=== PATIENT | female | born 1945 | race Caucasian/White ===

== ENCOUNTER → 2019-06-18 08:29 | Outpatient (CLI) | payer MEDICARE, OTHER ==
[~2019-06-18 08:29] MED LIST: BAYER CHEWABLE81 MG PO; BENICAR20 MG PO; CENTRUM SILVER1 EAC3 PO; CLARITIN 10 MG10 MG PO; COLACE100 MG PO; CYMBALTA30 MG PO; ELIQUIS2.5 MG PO; EXELON 13.3 M13.3 MG TRANSDERM; FLAGYL500 MG PO; HYDROCODON-ACE1 EA10 PO; LEVOFLOXACIN500 MG PO; LISINOPRIL10 MG PO; LISINOPRIL20 MG PO; MUCINEX600 MG PO; MYRBETRIQ25 MG PO; NAMENDA XR28 MG PO; NEXIUM40 MG PO; NORVASC2.5 MG PO; REMERON15 MG PO; TAPAZOLE 5 MG TA5 MG PO; TYLENOL ARTHRI650 MG PO; VITAMIN B-121000 MCG PO; [UNRECOGNIZED DRUG - OTHER] PO
[2019-08-01 11:12] VITALS: BMI 21.1
== END | disposition home or self-care (01) ==
LOC: D.US 08:29
PROVIDERS: ATTEND Family Medicine
DX: R10.10 Upper abdominal pain, unspecified (principal)

== ENCOUNTER 2019-06-19 18:24 | Inpatient (IN) | payer MEDICARE, OTHER ==
[~2019-06-19] VITALS: Ht 170.2 cm; Wt 64.0 kg
[2019-06-19] MEDS ORDERED: EXELON 13.3 M13.3 MG TRANSDERM (18:50)
[2019-06-19] MEDS ORDERED: NAMENDA XR28 MG PO (18:50)
[2019-06-19] MEDS ORDERED: TAPAZOLE 5 MG TA5 MG PO (18:51)
[2019-06-19] MEDS ORDERED: BENICAR20 MG PO (18:51)
[2019-06-19] MEDS ORDERED: NORVASC2.5 MG PO (18:51)
[2019-06-19] MEDS ORDERED: REMERON15 MG PO (18:52)
[2019-06-19] MEDS ORDERED: MYRBETRIQ25 MG PO (18:53)
[2019-06-19] MEDS ORDERED: CENTRUM SILVER1 EAC3 PO (18:53)
[2019-06-19] MEDS ORDERED: COLACE100 MG PO (18:53)
[2019-06-19] MEDS ORDERED: BAYER CHEWABLE81 MG PO (18:54)
[2019-06-19] MEDS ORDERED: VITAMIN B-121000 MCG PO (18:54)
[2019-06-19] MEDS ORDERED: [UNRECOGNIZED DRUG - OTHER] PO (18:55)
[2019-06-19 19:29] LABS: BASOPHILS 0.2 % (0-2); EOSINOPHILS 0.4 % (0-7); HEMATOCRIT 39.1 % (36.0-48.0); HEMOGLOBIN 13.1 g/dL (12-16); IMMATURE GRANULOCYTES 0.2 % (0-5); LYMPHOCYTES 12.1 % (15-50); MCH 31.5 pg (26.0-34.0); MCHC 33.5 g/dL (31.0-37.0); MEAN PLATELET VOLUME 8.9 fL (7.4-10.4); MONOCYTES 7.9 % (2-11); NEUTROPHILS 79.2 % (40-80); PLATELET COUNT 402 10x3/uL (130-400); RBC 4.16 10x6/uL (4.00-5.40); RDW 13.1 % (11.5-14.5); WBC 12.2 10x3/uL (4.8-10.8)
[2019-06-19 19:30] LABS: APPEARANCE CLEAR (CLEAR); BILIRUBIN NEGATIVE (NEGATIVE); COLOR YELLOW (YELLOW); GLUCOSE NEGATIVE (NEGATIVE); KETONE NEGATIVE (NEGATIVE); NITRITE NEGATIVE (NEGATIVE); PROTEIN NEGATIVE (NEGATIVE); SPECIFIC GRAVITY 1.005 (1.005-1.020); UROBILINOGEN NORMAL (NORMAL)
[2019-06-19 19:33] LABS: BACTERIA FEW /hpf (NEGATIVE); EPITHELIAL CELLS 0-5 /hpf (0-5); RED CELLS - URINE 0-5 /hpf (0-5); WHITE CELLS - URINE RARE /hpf (NEGATIVE)
--- NOTE | 2019-06-19 19:33 | NUR ---
URINE SENT TO LAB
[2019-06-19 19:53] LABS: ALBUMIN 3.1 g/dL (3.4-5.0); ALKALINE PHOSPHATASE 99 U/L (46-116); ALT (SGPT) 17 U/L (10-68); AMYLASE - SERUM 57 U/L (25-115); BILIRUBIN - TOTAL 0.29 mg/dL (0.2-1.3); CALC OSMOLALITY 294 mosm/kg (275-300); CALCIUM 9.1 mg/dL (8.5-10.1); CARBON DIOXIDE 33.2 mmol/L (21.0-32.0); CHLORIDE - SERUM 103 mmol/L (98-107); CREATININE - SERUM 1.5 mg/dL (0.6-1.3); GLUCOSE 141 mg/dL (74-106); LIPASE 181 U/L (73-393); POTASSIUM - SERUM 3.5 mmol/L (3.5-5.1); PROTEIN - SERUM 6.9 g/dL (6.4-8.2); SODIUM 145 mmol/L (136-145); TROPONIN-I < 0.017 ng/mL (0.000-0.060); UREA NITROGEN 23 mg/dL (7-18); eGFR NON AFRICAN AMERICAN 36 mL/min (90-120)
--- NOTE | 2019-06-19 22:39 | NUR ---
PT AMBULATED TO RESTROOM INDEPENDENTLY.
[2019-06-20 02:09] VITALS: BP 134/64; BMI 21.6
--- NOTE | 2019-06-20 02:23 | NUR ---
ADMISSIN ASSESSMENT COMPLETE. PT DENIES ANY NEEDS AT THIS TIME. BED IN LOWEST POSITION, SR X2, CALL LIGHT AND GLASSES WITHIN REACH. WILL CONTINUE TO MONITOR.
[2019-06-20 04:00] VITALS: BP 118/68
--- NOTE | 2019-06-20 07:00 | NUR ---
RECEIVED REPORT. ASSUMED CARE OF PATIENT. PATIENT ALERT/ORIENTED. RESP EVEN AND UNLABORED. NO DISTRESS. CALL LIGHT WITHIN REACH. NO DISTRESS.
--- NOTE | 2019-06-20 07:15 | NUR ---
ASSISTED PATIENT OOB TO RESTROOM AND BACK TO BED. NO DISTRESS. TRANSFERS WITH ONLY STAND BY ASSIST.
[2019-06-20 09:22] VITALS: BP 129/69
--- NOTE | 2019-06-20 10:43 | NUR ---
PHARMACY SAYS THE EXELON PATCHES ARE LOADED, THE PYXIS TELLS THIS CUSTOMER QUALITY SPECIALIST THEY ARE NOT. PHARMACY TO UNIT SOON TO FIND OUT WHAT THE PROBLEM IS.
--- NOTE | 2019-06-20 10:52 | NUR ---
CALLED PATIENTS AND HE WILL BRING PATIENTS EXELON PATCH WITH HIM FROM HOME BECAUSE WE DO NOT HAVE HER STRENGTH AVAILABLE AT THE HOSPITAL.
--- NOTE | 2019-06-20 13:11 | NUR ---
PATIENTS EXELON PATCHES BROUGHT FROM HOME ARE VERIFIED BY PHARMACY AND IN PATIENTS CASSETTE.
[2019-06-20 14:35] VITALS: BP 130/71
--- NOTE | 2019-06-20 15:59 | NUR ---
ASSISTED PATIENT OOB TO RESTROOM AND BACK TO BED. NO DISTRESS. IV FLUIDS INFUSING ORDERED. FEMALE VISITOR AT BEDSIDE LEFT. CALL LIGHT WITHIN REACH.
--- NOTE | 2019-06-20 17:58 | NUR ---
PATIENT HAS EATING PUDDING AND ICE CREAM OFF OF EVERY TRAY BUT REFUSES TO TRY THE SOUP, SAYS IT MIGHT HURT HER STOMACH. PATIENT IS REPEATING HERSELF MORE TOWARDS THE END OF THIS SHIFT THAN EARLIER. PATIENT DOES HAVE HX OF DEMENTIA AND DID RECEIVE A NEW EXELON PATCH TO HER LEFT SCAPULA AREA TODAY. NO DISTRESS. PATIENTS IS AT BEDSIDE AT THIS TIME. NO DISTRESS. CALL LIGHT WITHIN REACH.
[2019-06-20 18:19] VITALS: BP 139/74
--- NOTE | 2019-06-20 19:22 | NUR ---
RECIEVED BEDSIDE REPORT. A/A/O WITH VISITORS IN ROOM AND SPOUSE. AMBULATES TO B/R WITH STAND BY ASSIST. NON COMPLIANT WITH DIET. ATE A BANNANA. EXPLAINED TO PT AND THAT WE ARE TRYING TO REST HER INTESTINES WITH FULL LIQUID DIET. VOICED UNDERSTANDING. SPOUSE STATED HE WOULD TAKE THE REST OF THE FRUIT HOME. PT DOES HAVE PERIODS OF CONFUSION AND REPEATS SENTENCES SEVERAL TIMES. UNAWARE SHE HAS ALREADY SAID IT. DENIES ANY NEEDS AT THIS TIME.
[2019-06-20 20:00] VITALS: BP 123/66
[2019-06-21 00:30] VITALS: BP 114/50
[2019-06-21 04:00] VITALS: BP 168/76
[2019-06-21 04:58] LABS: BASOPHILS 0.3 % (0-2); LYMPHOCYTES 21.7 % (15-50); MCH 30.7 pg (26.0-34.0); MCHC 32.2 g/dL (31.0-37.0); MCV 95.4 fL (80.0-100.0); MEAN PLATELET VOLUME 8.9 fL (7.4-10.4); MONOCYTES 11.3 % (2-11); NEUTROPHILS 64.7 % (40-80); RDW 13.1 % (11.5-14.5)
[2019-06-21 05:01] LABS: HEMATOCRIT 31.1 % (36.0-48.0); PLATELET COUNT 312 10x3/uL (130-400); RBC 3.26 10x6/uL (4.00-5.40); WBC 6.1 10x3/uL (4.8-10.8)
[2019-06-21 05:31] LABS: ANION GAP 11.7 mmol/L (8-16); C-REACTIVE PROTEIN 4.8 mg/dL (0.0-0.9); CALCIUM 8.9 mg/dL (8.5-10.1); CARBON DIOXIDE 29.6 mmol/L (21.0-32.0); POTASSIUM - SERUM 3.3 mmol/L (3.5-5.1); T4 THYROXIN - FREE 0.96 ng/dL (0.76-1.46); THYROID STIMULATING HORMONE 0.29 uIU/mL (0.36-3.74)
[2019-06-21 05:33] LABS: ERYTHROCYTE SEDIMENTATION RATE 18 mm/hr (0-30)
--- NOTE | 2019-06-21 07:00 | NUR ---
RECEIVED REPORT. ASSUMED CARE OF PATIENT. NO DISTRESS. CALL LIGHT WITHIN REACH.
--- NOTE | 2019-06-21 07:29 | NUR ---
22 GAUGE IV PLACED TO LEFT FOREARM X 1 STICK. GOOD BLOOD RETURN, EASY FLUSH. TOLERATED IV PLACEMENT WELL. IV TAPED, DATED AND SECURED. NO DISTRESS. IV FLUIDS INFUSING ORDERED.
[2019-06-21 09:00] VITALS: BP 131/60
--- NOTE | 2019-06-21 09:08 | HP ---
PATIENT: VLADIMIR ROPER MEDICAL RECORD: [id number] ACCOUNT: [id number] LOCATION:[address] : [birth year] ADMISSION DATE: 06/20/19 PCP: EL RUEDA HISTORY AND PHYSICAL EXAMINATION ADMITTING PHYSICIAN: El Rueda MD REASON FOR ADMISSION: Abdominal pain. HISTORY OF PRESENT ILLNESS: The patient is a 73-year-old female with mild dementia. He has seen Dr. Rueda a few weeks ago. She had some abdominal pain, but denies fatty food intolerance. Gallbladder ultrasound was set up and performed yesterday showing numerous gallstones in the bladder without biliary dilatation. She presented to the ED because of this, but she described more left lower quadrant abdominal pain. A CT scan of the abdomen showed evidence of acute diverticulitis in the sigmoid colon. Her colonoscopy 4 years ago did not show any evidence of diverticulitis, just hemorrhoids. She admits to anorexia for the last couple of weeks, but no fever. No change in stools or fatty food intolerance. She denies constipation. She also denies hip pain. PAST MEDICAL HISTORY: Dementia. She was hospitalized in [address] [facility] for pneumonia and influenza, GERD, history of demand ischemia followed by Dr. England with history of CAD, but she does not recollect this. Essential hypertension, urinary stress incontinence, and hypothyroidism. PAST SURGICAL HISTORY: She had hysterectomy. FAMILY HISTORY: Mother at 95 of old age. Father at 88 from heart disease. One brother in good health. SOCIAL HISTORY: Lives at home with her who does help for most of her ADLs. She does not drive. She is a nonsmoker and nondrinker. She is a Scientologist. He has 2 children, but daughter from drug abuse and 1 grandchild. HOME MEDICATIONS: Namenda XR 28 mg daily, Exelon 13.5 mg transdermal patch daily, Tapazole mg p.o. daily, Benicar 25 mg a day, Norvasc 2.5 mg a day, Remeron 7.5 mg at h.s., Myrbetriq 25 mg daily, multivitamin 1 daily, Colace 100 mg p.o. daily, aspirin 81 mg daily, vitamin B12 1000 mcg p.o. daily. ALLERGIES: SULFA. REVIEW OF SYSTEMS: CONSTITUTIONAL: No fever, fatigue, but anorexia. HEENT: No recent new visual change, sinus congestion, or sore throat. RESPIRATORY: No severe cough. CARDIAC: No exertional chest pain, claudication or edema. GASTROINTESTINAL: Intermittent nausea with vague constant mid to lower abdominal pain for the last 2 weeks. Slight change in stool caliber of being small. Denies fatty food intolerance. GENITOURINARY: Has mild stress incontinence. No dysuria. GYNECOLOGICAL: No vaginal bleeding post-hysterectomy and 2. MUSCULOSKELETAL: Denies arthralgias, particularly no hip pain. PSYCHIATRIC: Denies depressed mood. HISTORY AND PHYSICAL [id number] VLADIMIR ROPER NEUROLOGICAL: Admits to poor memory. PHYSICAL EXAMINATION: VITAL SIGNS: Pulse is 134, temperature was 97.7, blood pressure 127/71, respirations of 18, and satting 97% on room air. GENERAL: The patient is a pleasant, alert and oriented, in no acute distress. Her eyes are clear, nonicteric. Oropharynx unremarkable. NECK: Supple. CHEST: Clear without wheeze or rales. HEART: Tachycardic without murmur. BREASTS: Symmetrical. ABDOMEN: Soft, tender in the left lower quadrant without rebound moderately tender above the bladder. It is nontender. No right upper quadrant. PELVIC: Deferred. EXTREMITIES: No CC and E. Good range of motion, knees and hips with minimal crepitance in the right knee. IMAGING: Gallbladder shows multiple gallstones without obstruction. 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 LABORATORY DATA: White count of 12,000, H and H of 13 and 39 respectively. Chemistry showed BUN and creatinine 23 and 1.5, and glucose 141 nonfasting. Lipase and amylase normal. Liver functions are normal. Urine shows 0-5 red cells, and epithelial cells, negative bacteria. ASSESSMENT: 1. Abdominal pain due to acute sigmoid diverticulitis. 2. Right femoral neck mass, etiology unknown, asymptomatic. 3. Hiatal hernia. 4. Asymptomatic gallstones. 5. Dementia. 6. Hypertension. PLAN: The patient will be admitted, placed on clear liquids, IV fluids and IV antibiotics and we will discuss with radiology further workup concerning her hip lesion as indicated. Surgical consult if needed. TRANSINT:[id number] Voice Confirmation ID: [id number] DOCUMENT ID: [id number] LANCE FAJARDO MD at 0908 CC: [id number] DICTATION DATE: 06/20/19806 ELEMENTARY SPANISH TEACHER: 06/20/19 09 ADM IN [place] [id number] [place] [id number]
--- NOTE | 2019-06-21 12:44 | NUR ---
MEDICATED WITH TYLENOL. PATIENT TEMP ELEVATED AT 99.5. POOR APPETITIE AT THIS TIME. NO ACUTE DISTRESS.
[2019-06-21 13:58] VITALS: BP 127/69
[2019-06-21 17:54] VITALS: BP 118/63
--- NOTE | 2019-06-21 19:14 | NUR ---
RECIEVED BEDSIDE SHIFT REPOT. LYING IN BED WITH EYES OPEN AND TV ON. ALERT AND ORIENTED X4. REQUIRES ASSIST WITH AMBULATION. IV TO LEFT FA SL. TELEMETRY IN PLACE. DENIES ANY NEEDS AT THIS TIME.
[2019-06-21 20:00] VITALS: BP 112/59
[2019-06-22] VITALS: BP 117/60
[2019-06-22 04:00] VITALS: BP 125/68
[2019-06-22 05:40] LABS: BASOPHILS 0.2 % (0-2); EOSINOPHILS 2.2 % (0-7); HEMATOCRIT 30.8 % (36.0-48.0); HEMOGLOBIN 9.7 g/dL (12-16); IMMATURE GRANULOCYTES 0.2 % (0-5); LYMPHOCYTES 26.7 % (15-50); MCH 30.1 pg (26.0-34.0); MCHC 31.5 g/dL (31.0-37.0); MCV 95.7 fL (80.0-100.0); MEAN PLATELET VOLUME 8.7 fL (7.4-10.4); MONOCYTES 9.7 % (2-11); PLATELET COUNT 317 10x3/uL (130-400); RBC 3.22 10x6/uL (4.00-5.40); RDW 13.1 % (11.5-14.5); WBC 6.3 10x3/uL (4.8-10.8)
[2019-06-22 05:59] LABS: ANION GAP 10.5 mmol/L (8-16); CALCIUM 8.8 mg/dL (8.5-10.1); CARBON DIOXIDE 27.3 mmol/L (21.0-32.0); POTASSIUM - SERUM 3.8 mmol/L (3.5-5.1)
--- NOTE | 2019-06-22 07:04 | NUR ---
PT AWAKE AND ORIENTED AT THIS TIME. STATES WILL BE BY LATER AFTER HE TAKES THEIR GRANDDAUGHTER TO [employer]. NO COMPLAINTS/CONCERNS, ALL QUESTIONS ANSWERED TOT HE BEST OF MY ABILITY. CL IN REACH, SRX2
[2019-06-22 09:27] VITALS: BP 142/67
[2019-06-22 13:39] VITALS: BP 124/79
--- NOTE | 2019-06-22 14:40 | NUR ---
I have reviewed this patient and I concur with the Shift Assessment completed by the Licensed Practical Nurse today this shift.
--- NOTE | 2019-06-22 17:13 | NUR ---
WE HAD PATIENT IN MRI SUITE FOR HER SCAN OF RT HIP WO. WE WERE ABOUT TO BRING PT BACK WHEN THE RADIOLOGIST HAD US CALL THE DR AND GET A REVISED ORDER TO INCLUDE CONTRAST. WE PAGED THEM AND DR DIMAS GAVE US A VERBAL ORDER TO GIVE THE PATIENT CONTRAST TO HELP EVALUATE THE LESION ON THE RT FEMORAL NECK. ORDERS WERE READ BACK AND VERIFIED BY GOMEZ MOTA.
--- NOTE | 2019-06-22 19:41 | NUR ---
RECIEVED BEDSIDE REPORT. UP IN BED WITH SPOUSE AT BEDSIDE. MEAL TRAY IN FRON OF HER. ONLY TOOK A FEW BITES OF DESERT. SAID "I DON'T LIKE TUNA". EXPLAINED THAT WE CAN GET HER SOMETHING ELSE AND TO LET US KNOW IF WE GIVE HER SOMETHING SHE DOES'NT LIKE". VERBALLY AGREED. IV TO LEFT FA WITH NS @ 50CC/HR. TELEMETRY IN PLACE. DENIES ANY NEEDS AT THIS TIME.
[2019-06-22 20:00] VITALS: BP 102/52
[2019-06-23] VITALS: BP 120/62
[2019-06-23 04:00] VITALS: BP 105/57
--- NOTE | 2019-06-23 07:00 | NUR ---
RECEIVED REPORT. ASSUMED CARE OF PATIENT. PATIENT LYING IN BED ON RIGHT LATERAL SIDE WITH EYES OPEN. PATIENT STATES SHE SLEPT WELL LAST NIGHT. DENIES NEEDS AT THIS TIME. NO DISTRESS.
--- NOTE | 2019-06-23 08:21 | NUR ---
ASSISTED PATIENT WITH MEAL SETUP. CALL LIGHT WITHIN REACH. NO DISTRESS.
[2019-06-23 09:45] VITALS: BP 142/64
[2019-06-23 12:37] VITALS: BP 108/57
[2019-06-23 13:14] VITALS: BMI 22.1
--- NOTE | 2019-06-23 13:21 | NUR ---
ASSISTED PATIENT TO THE RESTROOM AND BACK TO BED. CALL LIGHT WITHIN REACH. FAMILY AT BEDSIDE. NO DISTRESS.
--- NOTE | 2019-06-23 15:10 | MORECARE ---
CASE MANAGEMENT DISCHARGE SUMMARY PATIENT: VLADIMIR ROPER UNIT: [id number] ADM DATE: 06/20/19 AGE: 73 : 45 SEX: F ROOM/BED: D.2105 AUTHOR: AVILA MCKEON PHYSICIAN: REFERRING PHYSICIAN: LANCE FAJARDO MD DATE OF SERVICE: 06/23/19 Discharge Plan Patient Name: VLADIMIR ROPER [facility] [facility] 1945 Planned Disposition: Home Anticipated Discharge Date: Discharge Date: Expected LOS: Initial Reviewer: [email or web address] Initial Review Date: 06/23/2019 Generated: 06/23/19 4:10 pm Patient Name: VLADIMIR ROPER Page [phone] at 1510 All edits/amendments must be made on the electronic document DICTATION DATE: 06/23/19 150 PAINTER BOTTOM: FERN 06/23/19 1509 RPT#: [id number] DC DATE: STATUS: ADM IN [facility] [address] [place] [address] END OF REPORT
--- NOTE | 2019-06-23 15:19 | MORECARE ---
CASE MANAGEMENT DISCHARGE SUMMARY PATIENT: VLADIMIR ROPER UNIT: [id number] ADM DATE: 06/20/19 AGE: 73 : 45 SEX: F ROOM/BED: D.2107 AUTHOR: AVILA MCKEON PHYSICIAN: REFERRING PHYSICIAN: LANCE FAJARDO MD DATE OF SERVICE: 06/23/19 Discharge Plan Patient Name: VLADIMIR ROPER Facility: [facility]:[place] : 1945 Planned Disposition: Home Anticipated Discharge Date: Discharge Date: Expected LOS: Initial Reviewer: [email or web address] Initial Review Date: 06/23/2019 Generated: 06/23/19 4:18 pm Comments DCP- Discharge Planning Updated by [email or web address]: Tata Solomon on 06/23/19 2:[address] Patient Name: VLADIMIR ROPER Admission Status: ER Accout number: [id number] Admission Date: 06-20-2019 : 1945 Admission Diagnosis: Attending: LANCE FAJARDO Current LOS: 3 Anticipated DC Date: Planned Disposition: Home Primary Insurance: MEDICARE A & B Discharge Planning Comments: CM MET WITH PATIENT ABOUT DC PLANNING/NEEDS. PLANS TO DC TO HOME WITH . DENIES NEEDS FOR HH, REHAB OR EQUIPMENT. CM WILL FOLLOW AND ASSIST. Sr. Media Manager: Tata Solomon DCPIA - Discharge Planning Initial Assessment Updated by [id number]: Tata Solomon on 06/23/19 3:11 pm * Is the patient Alert and Oriented? Yes * PCP MOHIT * Pharmacy [facility] [address] * Preadmission Environment Home with Family * ADLs Independent * Equipment None * List name and contact numbers for known caregivers / representatives who currently or will assist patient after discharge: CYRUS, , * Community resources currently utilized None * Additional services required to return to the preadmission environment? No * Can the patient safely return to the preadmission environment? Yes * Has this patient been hospitalized within the prior 30 days at any hospital? No Last DP export: 06/23/19 2:10 Patient Name: VLADIMIR ROPER Page [phone] at 1519 All edits/amendments must be made on the electronic document DICTATION DATE: 06/23/191517 SMELTER OPERATOR: FERN 06/23/191517 RPT#: [id number] MO DATE: STATUS: ADM IN [facility] [address] [place] [address] END OF REPORT
--- NOTE | 2019-06-23 15:30 | NUR ---
IV TUBING CHANGED. TOLERATING IV ABX WELL, NO DISTRESS.
--- NOTE | 2019-06-23 16:00 | NUR ---
SHOWER COMPLETE. NO DISTRESS. CALL LIGHT WITHIN REACH.
[2019-06-23 18:06] VITALS: BP 119/70
--- NOTE | 2019-06-23 19:10 | NUR ---
EVENING ROUNDS COMPLETE. PT SITTING UP IN BED, FAIMLY AT BEDSIDE. NO SIGNS OF DISTRESS. PT DENIES ANY PAIN OR NEEDS AT THIS TIME. CL IN REACH, BED IN LOWEST POSITION.
--- NOTE | 2019-06-23 19:30 | NUR ---
LEFT AC PIV REMOVED. TIP INTACT. PT TOLERATED WELL.
[2019-06-23 20:00] VITALS: BP 119/59
[2019-06-24] VITALS: BP 113/53
[2019-06-24 04:00] VITALS: BP 118/60
[2019-06-24 05:04] LABS: BASOPHILS 0.1 % (0-2); EOSINOPHILS 2.3 % (0-7); HEMOGLOBIN 10.3 g/dL (12-16); IMMATURE GRANULOCYTES 0.3 % (0-5); LYMPHOCYTES 19.9 % (15-50); MCH 30.6 pg (26.0-34.0); MCHC 32.2 g/dL (31.0-37.0); MEAN PLATELET VOLUME 8.7 fL (7.4-10.4); MONOCYTES 9.7 % (2-11); NEUTROPHILS 67.7 % (40-80); PLATELET COUNT 333 10x3/uL (130-400); RBC 3.37 10x6/uL (4.00-5.40); RDW 13.1 % (11.5-14.5); WBC 7.9 10x3/uL (4.8-10.8)
[2019-06-24 05:16] LABS: ANION GAP 9.8 mmol/L (8-16); CALCIUM 8.5 mg/dL (8.5-10.1); CARBON DIOXIDE 28.4 mmol/L (21.0-32.0); CREATININE - SERUM 0.9 mg/dL (0.6-1.3); POTASSIUM - SERUM 4.2 mmol/L (3.5-5.1)
[2019-06-24 06:05] LABS: APTT 31.6 SECONDS (22.8-39.4); INR 1.05 (0.85-1.17); PROTIME 13.2 SECONDS (11.6-15.0)
--- NOTE | 2019-06-24 06:54 | NUR ---
REPORT RECEIVED. SHE IS ALERT TO NAME. CL IN REACH DENIES ANY CURRENT NEEDS, BED IS LOCKED AND IN LOWEST POSITION. LEFT F/A SALINE LOCK INTACT. NO C/O ABDOMINAL PAIN OR LOOSE STOOLS. CAREPLAN REVIEW DONE WITH SAFETY PRECAUTIONS IN PLACE
[2019-06-24 09:25] VITALS: BP 118/58
[2019-06-24 14:02] VITALS: BP 104/51
[2019-06-24 17:43] VITALS: BP 113/58
[2019-06-24 20:00] VITALS: BP 110/53
--- NOTE | 2019-06-24 20:04 | NUR ---
AWAKE,ALERT.NO COMPLAITNS VOICED. RESP EVEN AND UNALBORED. IV TO LEFT ARM INTACT WITHOUT REDNESS OR EDEMA NOTED. CL IN REACH. FALL PRECAUTIONS IN PLACE.
[2019-06-25] VITALS: BP 107/54; BP 122/61
[2019-06-25 04:00] VITALS: BP 107/71
[2019-06-25 05:10] LABS: BASOPHILS 0.1 % (0-2); EOSINOPHILS 1.8 % (0-7); HEMATOCRIT 32.3 % (36.0-48.0); HEMOGLOBIN 10.6 g/dL (12-16); IMMATURE GRANULOCYTES 0.2 % (0-5); LYMPHOCYTES 18.6 % (15-50); MCH 30.7 pg (26.0-34.0); MCHC 32.8 g/dL (31.0-37.0); MCV 93.6 fL (80.0-100.0); MEAN PLATELET VOLUME 8.7 fL (7.4-10.4); MONOCYTES 9.5 % (2-11); NEUTROPHILS 69.8 % (40-80); PLATELET COUNT 346 10x3/uL (130-400); RBC 3.45 10x6/uL (4.00-5.40); RDW 13.2 % (11.5-14.5)
[2019-06-25 05:36] LABS: CALCIUM 8.6 mg/dL (8.5-10.1); CARBON DIOXIDE 26.6 mmol/L (21.0-32.0); CREATININE - SERUM 0.9 mg/dL (0.6-1.3); POTASSIUM - SERUM 3.6 mmol/L (3.5-5.1)
--- NOTE | 2019-06-25 07:00 | NUR ---
REPORT RECEIVED. SHE IS ALERT AND ABLE TO VOICE NEEDS. CL IN REACH RESP EVEN WITHOUT LABOR NO C/O ABDOMINAL OR LOOSE STOOLS STATED SHE RESTED GOOD LAST NIGHT. BED IN LOWEST POSITION AND LOCKED. CAREPLAN REVIEW DONE WITH SAFETY PRECAUTIONS IN PLACE
[2019-06-25 08:30] VITALS: BP 127/67
[2019-06-25 12:30] VITALS: BP 98/65
[2019-06-25 13:10] LABS: SPE - ALBUMIN 2.4 g/dL (2.9-4.4); SPE - ALPHA-1 GLOBULIN 0.3 g/dL (0.0-0.4); SPE - ALPHA-2 GLOBULIN 0.8 g/dL (0.4-1.0); SPE - BETA GLOBULIN 0.7 g/dL (0.7-1.3); SPE - GAMMA GLOBULIN 0.7 g/dL (0.4-1.8); SPE - M-SPIKE Not Observed g/dL (Not Observed); SPE - TOTAL PROTEIN 4.9 g/dL (6.0-8.5)
--- NOTE | 2019-06-25 13:11 | NUR ---
Nutrition Follow-up: Up in chair eating lunch at time of visit. Reports abd pain improving but eating "because I have to". Likes Ensure. Diet: Regular, Soft PO intake: 25-100% Wt: 141# Last BM: 06/25 Labs reviewed Meds noted: vitamin B12, Remeron -Continue current diet as tolerated. -+Ensure with meals. -RD following.
[2019-06-25] MEDS ORDERED: LEVOFLOXACIN500 MG PO (13:53)
[2019-06-25] MEDS ORDERED: FLAGYL500 MG PO (13:53)
[2019-06-25 14:09] LABS: CA125 8.2 U/mL (0.0-38.1); CEA 1.6 ng/mL (0.0-4.7)
--- NOTE | 2019-06-25 16:10 | MORECARE ---
CASE MANAGEMENT DISCHARGE SUMMARY PATIENT: VLADIMIR ROPER UNIT: [id number] ADM DATE: 06/20/19 AGE: 73 : 45 SEX: F ROOM/BED: D.2105 AUTHOR: AVILA MCKEON PHYSICIAN: REFERRING PHYSICIAN: LANCE FAJARDO MD DATE OF SERVICE: 06/25/19 Discharge Plan Patient Name: VLADIMIR ROPER Facility[facility]:[place] : 1945 Planned Disposition: Home Anticipated Discharge Date: 06/25/19 Discharge Date: Expected LOS: 5 Initial Reviewer: [email or web address] Initial Review Date: 06/23/2019 Generated: 06/25/19 5:10 pm Comments DCP- Discharge Planning Updated by [email or web address]: Tata Solomon on 06/23/19 2:[address] Patient Name: VLADIMIR ROPER Admission Status: ER Accout number: [id number] Admission Date: 06-20-2019 : 1945 Admission Diagnosis: Attending: LANCE FAJARDO Current LOS: 3 Anticipated DC Date: Planned Disposition: Home Primary Insurance: MEDICARE A & B Discharge Planning Comments: CM MET WITH PATIENT ABOUT DC PLANNING/NEEDS. PLANS TO DC TO HOME WITH . DENIES NEEDS FOR HH, REHAB OR EQUIPMENT. CM WILL FOLLOW AND ASSIST. Sheet Combining Operator: Tata Solomon DCPIA - Discharge Planning Initial Assessment Updated by [id number]: Tata Solomon on 06/23/19 3:11 pm * Is the patient Alert and Oriented? Yes * PCP MOHIT * Pharmacy [facility] * Preadmission Environment Home with Family * ADLs Independent * Equipment None * List name and contact numbers for known caregivers / representatives who currently or will assist patient after discharge: CYRUS, , * Community resources currently utilized None * Additional services required to return to the preadmission environment? No * Can the patient safely return to the preadmission environment? Yes * Has this patient been hospitalized within the prior 30 days at any hospital? No Coverage Notice Reviewer: [email or web address] Smiley You Notice Issued Date-Time: 06/25/2019 14:25 Notice Type: IM Discharge Notice Notice Delivered To: Patient Relationship to Patient: Supervisor Communications And Signals Name: Delivery Method: HAND - Hand Delivered Roselyn Days: Prior Verbal Notification: Recipient Understood Notice: Yes Recipient Signature: Yes Med Rec Note Co-signed by Attending: Coverage Notice Comment: Last DP export: 06/23/19 2:19 Patient Name: VLADIMIR ROPER Page [id number] at 1610 All edits/amendments must be made on the electronic document DICTATION DATE: 06/25/191609 PIPE ORGAN MECHANIC: FERN 06/25/191609 RPT#: [id number] DC DATE: STATUS: ADM IN [facility] [address] [place] [address] END OF REPORT
--- NOTE | 2019-06-25 16:18 | MORECARE ---
CASE MANAGEMENT DISCHARGE SUMMARY PATIENT: VLADIMIR ROPER UNIT: [id number] ADM DATE: 06/20/19 AGE: 73 : 45 SEX: F ROOM/BED: D.210 AUTHOR: AVILA MCKEON PHYSICIAN: REFERRING PHYSICIAN: LANCE FAJARDO MD DATE OF SERVICE: 06/25/19 Discharge Plan Patient Name: VLADIMIR ROPER Facility: [facility]:[place] : 1945 Planned Disposition: Home Anticipated Discharge Date: 06/25/19 Discharge Date: Expected LOS: 5 Initial Reviewer: [email or web address] Initial Review Date: 06/23/2019 Generated: 06/25/19 5:18 pm Comments DCP- Discharge Planning Updated by [id number]: Issa You on 06/25/19 3:[address] Patient Name: VLADIMIR ROPER Encounter No: [id number] : 1945 Primary Insurance: MEDICARE A & B Anticipated DC Date: 06-25-2019 Planned Disposition: Home DCP follow-up note: CM MET WITH PT IN ROOM TO DISCUSS DISCHARGE NEEDS AND PLANNING. CM DISCUSSED AVAILABILITY OF HOME HEALTH, REHAB SERVICES AND MEDICAL EQUIPMENT. PT DENIES DISCHARGE NEEDS. SPOUSE TO TRANSPORT HOME AT DISCHARGE. IMPORTANT MESSAGE FROM MEDICARE PROVIDED AND EXPLAINED. MARVIN Stapleton DCP- Discharge Planning Updated by [email or web address]: Tata Solomon on 06/23/19 2:[address] Patient Name: VLADIMIR ROPER Admission Status: ER Accout number: [id number] Admission Date: 06-20-2019 : 1945 Admission Diagnosis: Attending: LANCE FAJARDO Current LOS: 3 Anticipated DC Date: Planned Disposition: Home Primary Insurance: MEDICARE A & B Discharge Planning Comments: CM MET WITH PATIENT ABOUT DC PLANNING/NEEDS. PLANS TO DC TO HOME WITH . DENIES NEEDS FOR HH, REHAB OR EQUIPMENT. CM WILL FOLLOW AND ASSIST. Manufacturing Executive: Tata Solomon DCPIA - Discharge Planning Initial Assessment Updated by [id number]: Tata Solomon on 06/23/19 3:11 pm * Is the patient Alert and Oriented? Yes * PCP MOHIT * Pharmacy [facility] [address] * Preadmission Environment Home with Family * ADLs Independent * Equipment None * List name and contact numbers for known caregivers / representatives who currently or will assist patient after discharge: ROSEMARY BRIDGES, * Community resources currently utilized None * Additional services required to return to the preadmission environment? No * Can the patient safely return to the preadmission environment? Yes * Has this patient been hospitalized within the prior 30 days at any hospital? No Coverage Notice Reviewer: [email or web address] Smiley You Notice Issued Date-Time: 06/25/2019 14:25 Notice Type: IM Discharge Notice Notice Delivered To: Patient Relationship to Patient: Internal Wholesaler Name: Delivery Method: HAND - Hand Delivered Roselyn Days: Prior Verbal Notification: Recipient Understood Notice: Yes Recipient Signature: Yes Med Rec Note Co-signed by Attending: Coverage Notice Comment: Last DP export: 06/25/19 3:10 Patient Name: VLADIMIR ROPER Page [id number] at 1618 All edits/amendments must be made on the electronic document DICTATION DATE: 06/25/191617 GRAPHICS PROGRAMMER: FERN 06/25/191617 RPT#: [id number] DC DATE: STATUS: ADM IN [facility] [address] [place] [address] END OF REPORT
[2019-06-25 16:37] VITALS: BP 112/64
--- NOTE | 2019-06-25 16:41 | NUR ---
UPON ADMIT, PATIENT REPORTS TO HAVING A FLU SHOT. GOING HOME ON [facility].
[2019-06-25 17:08] LABS: CA 27-29 14.9 U/mL (0.0-38.6)
--- NOTE | 2019-06-25 18:15 | NUR ---
DISCHARGE PAPERS EXPLAINED TO HER AND IN DETAIL INCLUDING FOLLOW UP APPOINTMENTS AND NEW MEDICATIONS WHICH HE HAS ALREADY PICKED UP FROM THE PHARMACY. SALINE LOCK D/C WITH CATH TIP INTACT NO BLEEDING NOTED. TELEMETRY RETURNED TO HEAD CHARRER. SHE WAS TRANSFERRED BY W/C TO PRIVATE AUTO IN STABLE CONDITION
[2019-07-04 11:18] VITALS: Ht 170.2 cm; Wt 64.0 kg
== END 2019-06-25 18:15 | disposition home or self-care (01) | DRG 392 ==
LOC: D.ER 18:24 → D.M2 06-20 00:07
PROVIDERS: Family Medicine; Internal Medicine Hematology & Oncology; ADMIT Family Medicine; ATTEND Family Medicine
DX: K57.12 Diverticulitis of small intestine without perforation or abscess without bleeding (principal); N39.0 Urinary tract infection, site not specified; M89.9 Disorder of bone, unspecified; K44.9 Diaphragmatic hernia without obstruction or gangrene; K80.80 Other cholelithiasis without obstruction; F03.90 Unspecified dementia, unspecified severity, without behavioral disturbance, psychotic disturbance, mood disturbance, and anxiety; I10 Essential (primary) hypertension; K21.9 Gastro-esophageal reflux disease without esophagitis; I25.10 Atherosclerotic heart disease of native coronary artery without angina pectoris; E03.9 Hypothyroidism, unspecified; D64.9 Anemia, unspecified

== ENCOUNTER 2019-06-29 05:30 | Outpatient (CLI) | payer MEDICARE, OTHER ==
[~2019-06-29] VITALS: Ht 172.7 cm; Wt 65.0 kg
[~2019-06-29 05:30] MED LIST changes: -CLARITIN 10 MG10 MG PO; -CYMBALTA30 MG PO; -ELIQUIS2.5 MG PO; -HYDROCODON-ACE1 EA10 PO; -LISINOPRIL10 MG PO; -LISINOPRIL20 MG PO; -MUCINEX600 MG PO; -NEXIUM40 MG PO; -TYLENOL ARTHRI650 MG PO
[2019-06-29 06:12] LABS: PROTIME 12.7 SECONDS (11.6-15.0)
[2019-06-29 06:13] LABS: APTT 30.4 SECONDS (22.8-39.4)
[2019-06-29 06:20] LABS: BASOPHILS 0.1 % (0-2); EOSINOPHILS 0.4 % (0-7); HEMATOCRIT 34.4 % (36.0-48.0); HEMOGLOBIN 11.6 g/dL (12-16); IMMATURE GRANULOCYTES 0.3 % (0-5); LYMPHOCYTES 12.8 % (15-50); MCH 31.6 pg (26.0-34.0); MCHC 33.7 g/dL (31.0-37.0); MCV 93.7 fL (80.0-100.0); MONOCYTES 7.4 % (2-11); PLATELET COUNT 410 10x3/uL (130-400); RBC 3.67 10x6/uL (4.00-5.40); RDW 13.9 % (11.5-14.5); WBC 13.8 10x3/uL (4.8-10.8)
[2019-06-29 06:37] LABS: ANION GAP 12.2 mmol/L (8-16); CALCIUM 8.8 mg/dL (8.5-10.1); CARBON DIOXIDE 29.3 mmol/L (21.0-32.0); POTASSIUM - SERUM 3.5 mmol/L (3.5-5.1)
[2019-06-29] MEDS ORDERED: TYLENOL ARTHRI650 MG PO (06:42)
[2019-06-29] MEDS ORDERED: NEXIUM40 MG PO (06:42)
[2019-06-29] MEDS ORDERED: MUCINEX600 MG PO (06:42)
[2019-06-29] MEDS ORDERED: CYMBALTA30 MG PO (06:42)
[2019-06-29] MEDS ORDERED: LISINOPRIL20 MG PO (06:43)
[2019-06-29] MEDS ORDERED: NAMENDA XR28 MG PO (06:44)
[2019-06-29 06:49] VITALS: Ht 172.7 cm; Wt 65.0 kg
--- NOTE | 2019-06-29 12:43 | NUR ---
0948 VITAL SIGNS ARE RECORDED ON POST PROCEDURE FORM AND IS IN PAPER CHART FOR DOCUMENTATION.
--- NOTE | 2019-06-29 12:44 | NUR ---
1130 PT UP WITH ASSISTANCE TO BATHROOM. VOIDED WITHOUT DIFFICULTY. ASSISTED PT BACK TO BED. IV DC'D. CATHETER TIP INTACT. PRESSURE HELD UNTIL BLEEDING CEASED. BANDAID APPLIED. 1151 PT DISCHARGED HOME VIA WHEELCHAIR ACCOMPANIED BY HER . NO BLEEDING NOTED ON DRESSING OR HEMATOMA AT SITE. HAS DISCHARGE PACKET WITH INSTRUCTIONS.
== END 2019-06-29 11:51 ==
LOC: D.SP 05:30 → D.RAD 08:00 → D.SP 08:00
PROVIDERS: General Practice; ATTEND Orthopaedic Surgery
DX: R22.41 Localized swelling, mass and lump, right lower limb (principal)

== ENCOUNTER 2019-07-13 07:43 | Inpatient (IN) | payer MEDICARE, OTHER ==
[~2019-07-13] VITALS: Ht 152.4 cm; Wt 75.6 kg
[~2019-07-13 07:43] MED LIST changes: +CYMBALTA30 MG PO; +LISINOPRIL20 MG PO; +MUCINEX600 MG PO; +NEXIUM40 MG PO; +TYLENOL ARTHRI650 MG PO
[2019-07-23] MEDS ORDERED: BAYER CHEWABLE81 MG PO (08:34)
[2019-07-23 09:28] LABS: HEMATOCRIT 38.3 % (36.0-48.0); HEMOGLOBIN 12.7 g/dL (12-16); MCH 31.4 pg (26.0-34.0); MCHC 33.2 g/dL (31.0-37.0); MCV 94.6 fL (80.0-100.0); MEAN PLATELET VOLUME 9.1 fL (7.4-10.4); RBC 4.05 10x6/uL (4.00-5.40); WBC 7.2 10x3/uL (4.8-10.8)
[2019-07-27] VITALS (19 sets, daily range): BP systolic 57–116; BP diastolic 33–61; BMI 22.9
--- NOTE | 2019-07-27 12:20 | NUR ---
DR OLEKSANDR BATRES, UPDATE GIVEN. REQUESTED WE CONSULT PRIMARY CARE FOR PT, DR COTTER'S OFFICE PUT PAGE OUT TO DR DUTTON, AWAITING CALL.
--- NOTE | 2019-07-27 19:25 | NUR ---
PT LYING IN BED RESTING, AOX4. IV RIGHT FA INFUSING 1/2NS @ 125. RIGHT HIP INCISION AND DRESSING CDI. PT DENIES PAIN AT THIS TIME. CL IN REACH, WILL CTM
--- NOTE | 2019-07-27 20:00 | NUR ---
NURSES AID ALERTED THIS NURSE TO 78/41 BP. THIS NURSE TOOK MANUAL BP AND GOT SAME READING. CALLED DR LEGGETT. ORDERS TO GET STAT H&H AND GIVE 500ML BOLUS. BOLUS STARTED. PLACED PT IN [place]. CALLED LAB TO DRAW H&H. STATES THEY WILL BE HERE SOON. PT DENIES LIGHTHEADEDNESS, DIZZINESS, SKIN WNL, HR 76. NO COMPLAINTS. WILL CTM
--- NOTE | 2019-07-27 21:00 | NUR ---
BP 57/36, SECOND 500ML BOLUS STARTED. AWAITING H&H RESULTS
[2019-07-27 21:12] LABS: BASOPHILS 0 % (0-2); EOSINOPHILS 0 % (0-7); HEMATOCRIT 26.8 % (36.0-48.0); HEMOGLOBIN 8.7 g/dL (12-16); IMMATURE GRANULOCYTES 0.3 % (0-5); LYMPHOCYTES 7.3 % (15-50); MCH 30.6 pg (26.0-34.0); MCHC 32.5 g/dL (31.0-37.0); MCV 94.4 fL (80.0-100.0); MEAN PLATELET VOLUME 8.9 fL (7.4-10.4); MONOCYTES 6.2 % (2-11); NEUTROPHILS 86.2 % (40-80); RBC 2.84 10x6/uL (4.00-5.40); RDW 14.2 % (11.5-14.5); WBC 10.1 10x3/uL (4.8-10.8)
[2019-07-27 21:17] LABS: PLATELET COUNT 216 10x3/uL (130-400)
--- NOTE | 2019-07-27 21:45 | NUR ---
DR LEGGETT CALLED WITH H&H RESULTS. ORDERS TO REDRAW IN 4 HOURS. TRANSFUSE IF LESS THAN 8. ORDERS TO CONSULT MEDICINE. CALLED ARACELI MENDOZA APN WITH CONSULT. ORDERS RECIEVED FOR 3RD 500ML BOLUS AND TO TRANSFER TO ICU. CALLED [facility] DIRECTOR, PT TO GO TO ROOM 2306. CALLED REPORT. CALLED PT AND UPDATED ON STATUS. TRANSFERED PT AND BELONGINGS TO ROOM 2306 @ 2216
--- NOTE | 2019-07-27 22:15 | NUR ---
RECEIVED IN BED BY RN AND PCT. ALERT AND ORIENTED. B/P 82/61, HR 83. L HIP DRESSING CDI, SITE SOFT, NO SIGNS OF BLEEDING OR HEMATOMA. PT DENIES ANY PAIN. OTHER VSS. CALL LIGHT IN REACH, BED IN LOW POSITION.
--- NOTE | 2019-07-27 23:00 | NUR ---
B/P 77/48 MAP 55, LEVOPHED STARTED PER NOV. OTHER VSS. R HIP SITE SOFT, NO SIGNS OF BLEEDING NOTED. PT DENIES ANY NEEDS, CALL LIGHT IN REACH.
[2019-07-27 23:45] LABS: HEMATOCRIT 28.7 % (36.0-48.0); HEMOGLOBIN 9.7 g/dL (12-16)
[2019-07-27 23:52] LABS: INR 1.05 (0.85-1.17); PROTIME 13.2 SECONDS (11.6-15.0)
[2019-07-27 23:53] LABS: APTT 25.9 SECONDS (22.8-39.4)
[2019-07-28] VITALS (93 sets, daily range): BP systolic 81–128; BP diastolic 4–79; Ht 152.4 cm; Wt 75.6 kg
--- NOTE | 2019-07-28 00:18 | NUR ---
SPOKE WITH DR LEGGETT, UPDATE GIVEN. HE RECOMMENDED THAT WE CONSULT PRIMARY FOR PT. DR RUEDA'S OFFICE ANSWERING SERVICE CALLED AND DR DUTTON IS CLEARING INSPECTOR AND PAGED, WAITING CALL BACK.
--- NOTE | 2019-07-28 00:25 | NUR ---
DR MARIJA BATRES
--- NOTE | 2019-07-28 00:55 | NUR ---
DR DUTTON PAGED AGAIN
--- NOTE | 2019-07-28 01:25 | NUR ---
SPOKE WITH DR DUTTON, UPDATE GIVEN AND NEW ORDERS RECEIVED.
--- NOTE | 2019-07-28 03:00 | NUR ---
REASSESSMENT COMPLETE, SEE FLOWSHEET. VSS, NO SIGNS OF ACUTE DISTRESS NOTED. PT SLEEPING, CALL LIGHT IN REACH. WILL MONITOR.
[2019-07-28 04:27] LABS: BASOPHILS 0.1 % (0-2); EOSINOPHILS 0.1 % (0-7); HEMATOCRIT 30.6 % (36.0-48.0); HEMOGLOBIN 9.8 g/dL (12-16); IMMATURE GRANULOCYTES 0.1 % (0-5); LYMPHOCYTES 12.7 % (15-50); MCH 30.3 pg (26.0-34.0); MCV 94.7 fL (80.0-100.0); MEAN PLATELET VOLUME 9.2 fL (7.4-10.4); MONOCYTES 8.2 % (2-11); NEUTROPHILS 78.8 % (40-80); RBC 3.23 10x6/uL (4.00-5.40); RDW 14.4 % (11.5-14.5); WBC 11.5 10x3/uL (4.8-10.8)
[2019-07-28 04:34] LABS: PLATELET COUNT 334 10x3/uL (130-400)
[2019-07-28 04:43] LABS: ANION GAP 12.9 mmol/L (8-16); CALCIUM 7.9 mg/dL (8.5-10.1); CARBON DIOXIDE 25.5 mmol/L (21.0-32.0); CREATININE - SERUM 1.9 mg/dL (0.6-1.3); MAGNESIUM - SERUM 1.6 mg/dL (1.8-2.4); PHOSPHOROUS 3.9 mg/dL (2.5-4.9); POTASSIUM - SERUM 3.4 mmol/L (3.5-5.1)
--- NOTE | 2019-07-28 06:25 | NUR ---
DR MERAZ NOTIFIED OF CONSULT, UPDATE GIVEN. NO NEW ORDERS RECEIVED.
--- NOTE | 2019-07-28 09:00 | NUR ---
PT RESTING IN BED WATCHING TV. PT C/O OF PAIN IN RIGHT HIP. NO PAIN MEDICATIONS ON EMAR. WILL CALL DR. CATHY ALMEIDA TO MONITOR.
--- NOTE | 2019-07-28 09:00 | NUR ---
PT C/O OF GENERALIZED PAIN. TYLENOL GIVEN. PT DENIES ANY ACUTE DISTRESS OR NEEDS. VSS. WILL CONT TO MONITOR.
[2019-07-28 09:13] LABS: APPEARANCE CLEAR (CLEAR); BILIRUBIN NEGATIVE (NEGATIVE); COLOR YELLOW (YELLOW); GLUCOSE NEGATIVE (NEGATIVE); KETONE NEGATIVE (NEGATIVE); NITRITE NEGATIVE (NEGATIVE); PROTEIN TRACE mg/dL (NEGATIVE); UROBILINOGEN NORMAL (NORMAL)
[2019-07-28 09:14] LABS: BACTERIA FEW /hpf (NEGATIVE); EPITHELIAL CELLS OCC /hpf (0-5); RED CELLS - URINE RARE /hpf (0-5); TALC POWDER CRYSTALS RARE /hpf (NONE SEEN); WHITE CELLS - URINE RARE /hpf (NEGATIVE)
--- NOTE | 2019-07-28 10:01 | NUR ---
DR.RUDDER BATRES.
--- NOTE | 2019-07-28 10:39 | NUR ---
SPOKE WITH . NEW ORDERS RECEIVED. WILL CONT TO RAMILA.
--- NOTE | 2019-07-28 11:00 | NUR ---
REASSESSMENT COMPLETED PER FLOWSHEET, SEE FLOWSHEET FOR INFORMATION. PT C/O OF PAIN IN HIP AND NEEDING TO VOID. PT STATES "IT ONLY HURTS WHEN I MOVE MY LEG" ASKED PT IF SHE WOULD CONSENT TO A [place], PT CONSENTED. WILL CONT TO MONITOR.
--- NOTE | 2019-07-28 13:00 | NUR ---
PT IN BED RESTING WITH FAMILY AT BEDSDIE. NO ACUTE DISTRESS OR NEEDS NOTED AT THIS TIME. WILL CONT TO MONITOR.
--- NOTE | 2019-07-28 15:00 | NUR ---
PT IN BED RESTING WITH EYES CLOSED, FAMILY AT BEDSIDE. NO ACUTE NEEDS OR DISTRESS NOTED AT THIS TIME. WILL CONT TO MONITOR.
--- NOTE | 2019-07-28 15:11 | OP ---
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 POSTOPERATIVE DIAGNOSIS: Impending pathologic fracture of the right hip secondary to the intramedullary - femoral neck bone tumor. PROCEDURES: 1. Excision of a femoral neck lesion. 2. Cemented bipolar endoprosthetic hip replacement. SURGEON: Miriam Humphreys MD GENERAL MANAGER: REX Stanley INTRAOPERATIVE COMPLICATIONS: None. SUMMARY OF PATHOLOGIC FINDINGS: The patient was indeed found to have the tumor as described that appeared to be solitary frozen section showed that most of samples obtained so far today are necrotic and is nonidentifiable on frozen section. Femoral head will be sent for complete decal. OPERATIVE SUMMARY IN DETAIL: After obtaining the appropriate preoperative orthopedic surgery consent as well as anesthetic consultation, evaluation and clearance, the patient was brought to the operating room and placed on the operating table in a supine position. After general laryngeal mask was administered, appropriate timeout was taken. The patient was placed in a left lateral decubitus position. All pressure points were well padded to include down leg peroneal pad as well as axillary roll. The patient was held firmly to the operating table using the vacuum pack suction system. Right lower extremity and hip were then prepped and draped in routine sterile fashion. Curvilinear incision was made of the greater trochanter. IT band was split in line with fibers of the IT band to reveal the gluteus medius and minimus. These were reflected anteriorly. The hip capsule was split in a T-type fashion. Please note that irrigation was used at this point on all irrigation on this procedure with sterile water rather than normal saline. The femoral neck was dislocated. A primary femoral neck cut was made at the apex of the tumor as to not cause any tumor spillage. There was some tumor visual be seen in the femoral head. This was handed off the field. At this point, with adequate coverage and constant suction the proximal femoral neck and proximal calcar tumor was completely removed as much as was possible visually. This was removed with a combination of pituitary rongeurs as well as rongeurs and curettage. Care was taken to be sure that any type of capsular tissue was removed. A simple irrigation again with sterile water was utilized. At this point, the specimen was sent for frozen and permanent sections. Serial sequential reaming and broaching were done for the proximal femur for a size 4 cemented Accolade stem. After prep of the proximal humeral canal and drying the bone in, size 4 Accolade stem was cemented into place and then a size standard femoral head was placed on a size 47 outside diameter bipolar component. This was tamped into place on the Beck taper. The hip was reduced. Intraoperative radiographs were taken and showed excellent position and placement with good leg length bahai. At this OPERATIVE REPORT [id number] VLADIMIR ROPER, a gram of vancomycin and a gram of tobramycin were placed directly on to the prosthesis. The hip capsule was then closed with #2 Ethibond followed by #5 Ethibond reapproximation to the greater trochanter in an intraosseous fashion. IT band was closed with #2 Ethibond followed by #1 Vicryl, 2-0 Vicryl, and skin staple. Closure was done by Yayo Anderson. Sterile dressings were applied. The patient was awakened and taken to recovery room in stable condition. All final needle and sponge counts were correct. TRANSINT:[id number] Voice Confirmation ID: [id number] DOCUMENT ID: [id number] MIRIAM HUMPHREYS MD at 1511 CC: [id number] DICTATION DATE: 07/27/19911 DISPATCH ASSOCIATE: 07/27/19 [address] [facility] [place] [id number] [place] [address]
--- NOTE | 2019-07-28 17:00 | NUR ---
FAMILY AT BEDSIDE, UPDATE GIVEN. NO ACUTE NEEDS OR DISTRESS NOTED AT THIS TIME. WILL CONT TO MONITOR.
--- NOTE | 2019-07-28 19:00 | NUR ---
BEDSIDE REPORT AND SHIFT ASSESSMENT COMPLETE. PT C/O PAIN IN R HIP/LEG. VSS, NO SIGNS OF ACUTE DISTRESS NOTED. PT DENIES ANY OTHER NEEDS. CALL LIGHT IN REACH, WILL MONITOR.
--- NOTE | 2019-07-28 19:55 | MORECARE ---
CASE MANAGEMENT DISCHARGE SUMMARY PATIENT: VLADIMIR ROPER UNIT: [id number] ADM DATE: 07/27/19 AGE: 73 : 45 SEX: F ROOM/BED: D.2306 AUTHOR: LINDA,DOC PHYSICIAN: REFERRING PHYSICIAN: MIRIAM HUMPHREYS MD DATE OF SERVICE: 07/28/19 Discharge Plan Patient Name: VLADIMIR ROPER Facility: [facility]:[place] : 1945 Planned Disposition: Home Anticipated Discharge Date: Discharge Date: Expected LOS: Initial Reviewer: [email or web address] Initial Review Date: 07/28/2019 Generated: 07/28/19 8:54 pm DCP- Discharge Planning Updated by [email or web address]: Sheila Garcia on 07/28/19 6:[address] Patient Name: VLADIMIR ROPER Admission Status: Elective Accout number: [id number] Admission Date: 07-27-2019 : 1945 Admission Diagnosis: Attending: MIRIAM HUMPHREYS Current LOS: 1 Anticipated DC Date: Planned Disposition: Home Primary Insurance: MEDICARE A & B Discharge Planning Comments: CM met with patient to complete initial dc planning assessment. CM educated patient on the CM role and verbal consent given by patient to complete assessment. Patient lives at home with her where she is independent with her care. At discharge patient plans to return home and feels this is a safe discharge. CM discussed availability of home health, rehab services, and medical equipment. Patient has a walker but will most likely need bedside commode upon discharge. MARIA ESTHER signed for DME (no preference) Patient denied known discharge needs at this time. CM will continue to follow and will assist as needed with dc plans/needs. Mold Mover: Sheila Garcia DCPIA - Discharge Planning Initial Assessment Updated by [email or web address]: Sheila Garcia on 07/28/19 7:51 pm * Is the patient Alert and Oriented? Yes * How many steps to enter\exit or inside your home? * PCP MOHIT * [facility] [address] * Preadmission Environment Home with Family * ADLs Independent * Other Equipment WALKER * List name and contact numbers for known caregivers / representatives who currently or will assist patient after discharge: CYRUS ROPER - SPOUSE- [phone] * Verbal permission to speak to the caregivers and representatives has been obtained from the patient. Yes * Community resources currently utilized None * Additional services required to return to the preadmission environment? No * Can the patient safely return to the preadmission environment? Yes * Has this patient been hospitalized within the prior 30 days at any hospital? No Patient Name: VLADIMIR ROPER Page [phone] at 1955 All edits/amendments must be made on the electronic document DICTATION DATE: 07/28/191953 NURSING ADMIN: FERN 07/28/191953 RPT#: [id number] DC DATE: STATUS: ADM IN [facility] [address] [place] [address] END OF REPORT
--- NOTE | 2019-07-28 20:00 | NUR ---
FAMILY AT BEDSIDE, STATES THEY GAVE GUMARO MERA PATCHES FOR DEMENTIA. [facility] GUMARO MERA TOLD THEM SHE WOULD ASK DOCTOR IF IT WAS OK TO CONTINUE HOME MED.
--- NOTE | 2019-07-28 20:45 | NUR ---
DR RUEDA PAGED, CALL RETURNED - NEW ORDERS RECEIVED.
--- NOTE | 2019-07-28 21:14 | NUR ---
DR. RUEDA PAGED AND NOTIFIED OF PT C/O R LEG "STARTING TO HURT WORSE". STATUS REPORT GIVEN, LEVOPHED AT 5 MCG/MIN, WEANING TOLERATED. NEW ORDERS REC'D.
--- NOTE | 2019-07-28 21:58 | NUR ---
INNER R FA PIV WITH REDNESS NOTED, D/C'D INTACT. NEW 20GA PIV SITED TO L WRIST X 1 STICK. RESUMED IVF/BOLUS PER MD ORDER.
--- NOTE | 2019-07-28 23:00 | NUR ---
PT REPOSITIONED FOR COMFORT. REASSESSMENT COMPLETE, SEE FLOWSHEET. VSS, NO SIGNS OF ACUTE DISTRESS NOTED. CALL LIGHT IN REACH, WILL MONITOR.
[2019-07-29] VITALS (30 sets, daily range): BP systolic 98–140; BP diastolic 46–80
--- NOTE | 2019-07-29 01:00 | NUR ---
PT SLEEPING. BED IN LOW POSITION, CALL LIGHT IN REACH.
--- NOTE | 2019-07-29 03:00 | NUR ---
REASSESSMENT COMPLETE, SEE FLOWSHEET. NO CHANGES NOTED. VSS, NO SIGNS OF ACUTE DISTRESS NOTED. PT SLEEPING, CALL LIGHT IN REACH. SCD'S ON.
[2019-07-29 04:17] LABS: BASOPHILS 0 % (0-2); EOSINOPHILS 1.1 % (0-7); HEMATOCRIT 27.4 % (36.0-48.0); HEMOGLOBIN 9.2 g/dL (12-16); LYMPHOCYTES 11.8 % (15-50); MCH 31.8 pg (26.0-34.0); MCHC 33.6 g/dL (31.0-37.0); MCV 94.8 fL (80.0-100.0); MONOCYTES 8.4 % (2-11); NEUTROPHILS 78.7 % (40-80); RBC 2.89 10x6/uL (4.00-5.40); RDW 14.2 % (11.5-14.5)
[2019-07-29 04:21] LABS: PLATELET COUNT 234 10x3/uL (130-400); WBC 7.1 10x3/uL (4.8-10.8)
[2019-07-29 04:35] LABS: ANION GAP 9.7 mmol/L (8-16); CALCIUM 7.6 mg/dL (8.5-10.1); CARBON DIOXIDE 25.3 mmol/L (21.0-32.0); MAGNESIUM - SERUM 1.4 mg/dL (1.8-2.4); PHOSPHOROUS 3.8 mg/dL (2.5-4.9)
[2019-07-29 04:37] LABS: CREATININE - SERUM 1.4 mg/dL (0.6-1.3)
--- NOTE | 2019-07-29 05:30 | NUR ---
CHG BATH, LINEN CHANGE COMPLETE. REMOVED PUREWICK EXTERNAL CATHETER, PLACED PT ON BED IQBAL. VSS, NO SIGNS OF ACUTE DISTRESS NOTED. PT DENIES ANY PAIN, WILL MONITOR.
--- NOTE | 2019-07-29 07:15 | NUR ---
REPORT RECEIVED. ASSESSMENT COMPLETE PER FLOW SHEET. VSS. PT DENIES NEEDS WILL CONTINUE TO MONITOR
--- NOTE | 2019-07-29 08:14 | NUR ---
Nutrition follow-up: Pt s/p bone tumor removal and hip arthroplasty Diet: Regular PO intake continues to be poor labs reviewed Wt: 166# Will provide food choices and honor food preferences Will offer nutritional supplements. RDN following.
[2019-07-29 09:14] LABS: % SATURATION 9 % (15-55); IRON 13 ug/dl (35-150); TOTAL IRON BIND CAPACITY 133 ug/dl (260-445); UNSAT IRON BIND CAPACITY 120 ug/dl (150-375)
--- NOTE | 2019-07-29 09:30 | NUR ---
PT ASSISTED ONTO BEDPAN 250 VOID NOTED. DENIES NEEDS. REFUSED BREAKFAST WILL CONTINUE TO MONITOR
--- NOTE | 2019-07-29 11:20 | NUR ---
PT GIVEN LUNCH TRAY SITTING UP IN CHAIR AT THIS TIME. VSS. WILL CONTINUE TO MONITOR
--- NOTE | 2019-07-29 16:42 | NUR ---
PATIENT RECEIVED FROM ICU. ALERT AND ORIENTED. S1, S2 HEARD. RADIAL PULSES PALP. PEDAL PULSE PALP. EXP WHEEZE IN ALL LOBES EXCEPT LLL IS DIMINISHED. BRUISE ON LEFT MERA AND SM ON LEFT HIP. FALL PRECAUTIONS IN PLACE. CL AND PHONE IN REACH. NO FURTHER NEEDS AT THIS TIME.
[2019-07-30 04:00] VITALS: BP 148/88
[2019-07-30 06:09] LABS: BASOPHILS 0 % (0-2); EOSINOPHILS 0.9 % (0-7); HEMATOCRIT 29.1 % (36.0-48.0); HEMOGLOBIN 9.6 g/dL (12-16); IMMATURE GRANULOCYTES 0.1 % (0-5); LYMPHOCYTES 11.7 % (15-50); MCH 30.7 pg (26.0-34.0); MEAN PLATELET VOLUME 9.2 fL (7.4-10.4); NEUTROPHILS 80.3 % (40-80); PLATELET COUNT 260 10x3/uL (130-400); RBC 3.13 10x6/uL (4.00-5.40); RDW 14.1 % (11.5-14.5); WBC 7.7 10x3/uL (4.8-10.8)
[2019-07-30 06:45] LABS: ANION GAP 12.1 mmol/L (8-16); CALCIUM 7.6 mg/dL (8.5-10.1); CARBON DIOXIDE 23.5 mmol/L (21.0-32.0); CREATININE - SERUM 1.1 mg/dL (0.6-1.3); MAGNESIUM - SERUM 1.3 mg/dL (1.8-2.4); PHOSPHOROUS 3.3 mg/dL (2.5-4.9); POTASSIUM - SERUM 3.6 mmol/L (3.5-5.1)
--- NOTE | 2019-07-30 07:15 | NUR ---
REC'D IN BED AWAKE AND ALERT. RESP EVEN AND UNLABORED WITH NO DISTRESS NOTED. CAN EXPRESS NEEDS AND WANTS. NO C/O NOTED OR VOICED. ASSESSMENT COMPLETED. C/L IN REACH AT BEDSIDE.
[2019-07-30 08:46] VITALS: BP 136/76
--- NOTE | 2019-07-30 09:47 | NUR ---
Rehab Note- Acute Inpatient REhab prescreen order received. The patient is a good inpatient acute rehab candidate when she is medically stable- has a noted temp within last 24hrs & also been tachycardic. Will follow at this time and when medically stable & in agreeance, will accept to [facility] Acute Inpatient Rehab. Thank you for this referral! India Mtz RN Clinical Liaison, [facility] Rehab
[2019-07-30 12:38] VITALS: BP 140/76
[2019-07-30 14:49] VITALS: BP 150/79
--- NOTE | 2019-07-30 14:53 | NUR ---
OT NOTE: UPON EXERTION, PT HAS A RATTLE LIKE SOUND WHEN BREATHING. NURSING NOTIFIED. PT 02 STATS 97 PERCENT. PT COMPLETED TOILETING WITH MOD A FOR CLOTHING MANAGEMENT. THANK YOU, ARNULFO BERRY
--- NOTE | 2019-07-30 17:56 | NUR ---
I have reviewed this patient and I concur with the Shift Assessment completed by the Licensed Practical Nurse today this shift.
[2019-07-30 20:00] VITALS: BP 133/77
[2019-07-31] VITALS: BP 130/69
[2019-07-31 04:00] VITALS: BP 129/69
--- NOTE | 2019-07-31 04:12 | NUR ---
ASSESSED AT THE BEGINNING OF THE SHIFT. PT IS ALERT AND ORIENTED, WITH JUST A LITTLE CONFUSION. SHE HAS STATED THAT THERE ARE PEOPLE IN HER ROOM TALKING. WE HAVE REASSURED HER THAT THERE IS NO ONE THERE AND THAT SHE IS PROBABLY HEARING THE TV OR PATIENTS AROUND HER. SHE HAS BEEN ASSISTED UP TO THE BATHROOM SEVERAL TIMES AND HAS DONE VERY WELL. HER DRESSING REMAINS INTACT TO THE RIGHT HIP.
[2019-07-31 07:38] LABS: ANION GAP 13.8 mmol/L (8-16); CALCIUM 8.4 mg/dL (8.5-10.1); CARBON DIOXIDE 24.6 mmol/L (21.0-32.0); CREATININE - SERUM 1.2 mg/dL (0.6-1.3); MAGNESIUM - SERUM 1.3 mg/dL (1.8-2.4); PHOSPHOROUS 3.6 mg/dL (2.5-4.9); POTASSIUM - SERUM 3.4 mmol/L (3.5-5.1)
[2019-07-31 08:04] LABS: HEMATOCRIT 27.5 % (36.0-48.0); HEMOGLOBIN 9.6 g/dL (12-16); LYMPHOCYTES 12.9 % (15-50); MCH 32.1 pg (26.0-34.0); MCHC 34.9 g/dL (31.0-37.0); MEAN PLATELET VOLUME 9.4 fL (7.4-10.4); NEUTROPHILS 75.7 % (40-80); PLATELET COUNT 254 10x3/uL (130-400); RBC 2.99 10x6/uL (4.00-5.40); RDW 14.2 % (11.5-14.5); WBC 7.8 10x3/uL (4.8-10.8)
[2019-07-31 08:30] VITALS: BP 153/88
[2019-07-31] MEDS ORDERED: HYDROCODON-ACE1 EA10 PO (10:22)
[2019-07-31] MEDS ORDERED: ELIQUIS2.5 MG PO (10:22)
[2019-07-31 12:53] VITALS: BP 135/83
[2019-07-31] MEDS ORDERED: CLARITIN 10 MG10 MG PO (13:07)
--- NOTE | 2019-07-31 13:24 | NUR ---
OT NOTE: PT PERFORMED BED MOB WITH EXT TIME AND MIN ASSIST; AMB WITH CGA AND WALKER FROM BED TO BATHROOM; CLOTHING MGMT WITH CGA; HYGIENE WITH SET UP; ABLE TO STAND FOR APPROX 4 MIN WHILE BANDAGE BEING CHANGED. LARGE AMOUNT OF DRAINAGE NOTED ON BED PAD. MOD ASSIST TO ELIAZAR BRIEFS OVER FEET; MIN ASSIST WITH GOWN; SET UP TO WASH FACE, HANDS, AND ARMS WITH WASH CLOTH. AMB APPROX 12 FT TO CHAIR. PT DOING VERY WELL.. REQUIRES EXTRA TIME TO COMPLETE TASKS. CHELI EL, OTR/L
[2019-07-31] MEDS ORDERED: LISINOPRIL10 MG PO (13:25)
--- NOTE | 2019-07-31 15:19 | MORECARE ---
CASE MANAGEMENT DISCHARGE SUMMARY PATIENT: VLADIMIR ROPER UNIT: [id number] ADM DATE: 07/27/19 AGE: 73 : 45 SEX: F ROOM/BED: D.2207 AUTHOR: LINDA,DOC PHYSICIAN: REFERRING PHYSICIAN: MIRIAM HUMPHREYS MD DATE OF SERVICE: 07/31/19 Discharge Plan Patient Name: VLADIMIR ROPER Facility: [facility]:[place] : 1945 Planned Disposition: Home Anticipated Discharge Date: Discharge Date: Expected LOS: Initial Reviewer: [email or web address] Initial Review Date: 07/28/2019 Generated: 07/31/19 4:19 pm Comments DCP- Discharge Planning Updated by [id number]: Felicitas Hobbs on 07/31/19 2:[address] PATIENT DISCHARGING TO INPATIENT REHAB TODAY, IMM SERVED AND EXPLAINED. CM TO FOLLOW AND ASSIST NEEDED DCP- Discharge Planning Updated by [id number]: Sheila Garcia on 07/28/19 6:[address] Patient Name: VLADIMIR ROPER Admission Status: Elective Accout number: [id number] Admission Date: 07-27-2019 : 1945 Admission Diagnosis: Attending: MIRIAM HUMPHREYS Current LOS: 1 Anticipated DC Date: Planned Disposition: Home Primary Insurance: MEDICARE A & B Discharge Planning Comments: CM met with patient to complete initial dc planning assessment. CM educated patient on the CM role and verbal consent given by patient to complete assessment. Patient lives at home with her where she is independent with her care. At discharge patient plans to return home and feels this is a safe discharge. CM discussed availability of home health, rehab services, and medical equipment. Patient has a walker but will most likely need bedside commode upon discharge. MARIA ESTHER signed for DME (no preference) Patient denied known discharge needs at this time. CM will continue to follow and will assist as needed with dc plans/needs. Cigar Packing Examiner: Sheila Garcia DCPIA - Discharge Planning Initial Assessment Updated by [email or web address]: Sheila Garcia on 07/28/19 7:51 pm * Is the patient Alert and Oriented? Yes * How many steps to enter\exit or inside your home? * PCP MOHIT * [facility] [address] * Preadmission Environment Home with Family * ADLs Independent * Other Equipment WALKER * List name and contact numbers for known caregivers / representatives who currently or will assist patient after discharge: CYRUS ROPER - SPOUSE- [phone] * Verbal permission to speak to the caregivers and representatives has been obtained from the patient. Yes * Community resources currently utilized None * Additional services required to return to the preadmission environment? No * Can the patient safely return to the preadmission environment? Yes * Has this patient been hospitalized within the prior 30 days at any hospital? No Coverage Notice Reviewer: [id number] Smiley Hobbs Notice Issued Date-Time: 07/31/2019 15:00 Notice Type: IM Discharge Notice Notice Delivered To: Patient Relationship to Patient: Manager Administrative Name: Delivery Method: HAND - Hand Delivered Roselyn Days: Prior Verbal Notification: Recipient Understood Notice: Yes Recipient Signature: Yes Med Rec Note Co-signed by Attending: Coverage Notice Comment: Last DP export: 07/28/19 6:54 Patient Name: VLADIMIR ROPER Page [phone] at 1519 All edits/amendments must be made on the electronic document DICTATION DATE: 07/31/191518 STEAM SHOVEL ENGINEER: FERN 07/31/191518 RPT#: [id number] DC DATE: STATUS: ADM IN [facility] [address] [place] [address] END OF REPORT
--- NOTE | 2019-07-31 17:03 | NUR ---
I have reviewed this patient and I concur with the Shift Assessment completed by the Licensed Practical Nurse today this shift.
--- NOTE | 2019-07-31 18:29 | NUR ---
TRANSFERRED DOWNSTAIRS TO IN HOUSE REHAB. ALERT AND ORIENTED TO SELF WITH CONFUSION TO TIME AND SITUATION. INSTRUCTION GIVEN TO AND VOICE UNDERSTANDING. IV DC WITH TIP INTACT. STABLE CONDITION UPON DEPARTURE.
--- NOTE | 2019-08-01 15:24 | MORECARE ---
CASE MANAGEMENT DISCHARGE SUMMARY PATIENT: VLADIMIR ORPER UNIT: [id number] ADM DATE: 07/27/19 AGE: 73 : 45 SEX: F ROOM/BED: D.2207 AUTHOR: LINDA,DOC PHYSICIAN: REFERRING PHYSICIAN: MIRIAM HUMPHREYS MD DATE OF SERVICE: 08/01/19 Discharge Plan Patient Name: VLADIMIR ROPER Facility: [facility]:[place] : 1945 Planned Disposition: Home Anticipated Discharge Date: Discharge Date: 07/31/2019 Expected LOS: Initial Reviewer: [id number] Initial Review Date: 07/28/2019 Generated: 08/01/19 4:24 pm Comments DCP- Discharge Planning Updated by [email or web address]: Felicitas Hobbs on 07/31/19 2:[address] PATIENT DISCHARGING TO INPATIENT REHAB TODAY, IMM SERVED AND EXPLAINED. CM TO FOLLOW AND ASSIST NEEDED DCP- Discharge Planning Updated by [email or web address]: Sheila Garcia on 07/28/19 6:[address] Patient Name: VLADIMIR ROPER Admission Status: Elective Accout number: [id number] Admission Date: 07-27-2019 : 1945 Admission Diagnosis: Attending: MIRIAM HUMPHREYS Current LOS: 1 Anticipated DC Date: Planned Disposition: Home Primary Insurance: MEDICARE A & B Discharge Planning Comments: CM met with patient to complete initial dc planning assessment. CM educated patient on the CM role and verbal consent given by patient to complete assessment. Patient lives at home with her where she is independent with her care. At discharge patient plans to return home and feels this is a safe discharge. CM discussed availability of home health, rehab services, and medical equipment. Patient has a walker but will most likely need bedside commode upon discharge. MARIA ESTHER signed for DME (no preference) Patient denied known discharge needs at this time. CM will continue to follow and will assist as needed with dc plans/needs. Joinery Patternmaker: Sheila Garcia DCPIA - Discharge Planning Initial Assessment Updated by [email or web address]: Sheila Garcia on 07/28/19 7:51 pm * Is the patient Alert and Oriented? Yes * How many steps to enter\exit or inside your home? * PCP MOHIT * [facility] [address] * Preadmission Environment Home with Family * ADLs Independent * Other Equipment WALKER * List name and contact numbers for known caregivers / representatives who currently or will assist patient after discharge: CYRUS ROPER - [facility]- [phone] * Verbal permission to speak to the caregivers and representatives has been obtained from the patient. Yes * Community resources currently utilized None * Additional services required to return to the preadmission environment? No * Can the patient safely return to the preadmission environment? Yes * Has this patient been hospitalized within the prior 30 days at any hospital? No Coverage Notice Reviewer: [id number] Smiley Hobbs Notice Issued Date-Time: 07/31/2019 15:00 Notice Type: IM Discharge Notice Notice Delivered To: Patient Relationship to Patient: Photographic Hand Developer Name: Delivery Method: HAND - Hand Delivered Roselyn Days: Prior Verbal Notification: Recipient Understood Notice: Yes Recipient Signature: Yes Med Rec Note Co-signed by Attending: Coverage Notice Comment: Last DP export: 07/31/19 2:19 Patient Name: VLADIMIR ROPER Page [phone] at 1524 All edits/amendments must be made on the electronic document DICTATION DATE: 08/01/191523 ELECTRONICS INSTALLER: FERN 08/01/191523 RPT#: [id number] DC DATE:07/31/19 STATUS: DIS IN [facility] [address] [place] [address] END OF REPORT
== END 2019-07-31 18:30 | DRG 470 ==
LOC: D.MS 07-27 05:40 → D.SDCHOLD 07-27 05:40 → D.ICU 07-27 05:40 → D.SDCHOLD 07-27 07:30 → D.MS 07-27 09:54 → D.ICU 07-27 22:18 → D.MS 07-29 16:32
PROVIDERS: Anesthesiology; Family Medicine; Family Medicine Adult Medicine; Internal Medicine Hematology & Oncology; Orthopaedic Surgery; ADMIT Orthopaedic Surgery; ATTEND Orthopaedic Surgery
PROC: 0QB60ZZ Excision of Right Upper Femur, Open Approach (ICD-10-PCS; 2019-07-27)
PROC: 0SR90J9 Replacement of Right Hip Joint with Synthetic Substitute, Cemented, Open Approach (ICD-10-PCS; principal; 2019-07-27 07:30)
DX: D49.2 Neoplasm of unspecified behavior of bone, soft tissue, and skin (principal); N39.0 Urinary tract infection, site not specified; I95.81 Postprocedural hypotension; G30.9 Alzheimer's disease, unspecified; F02.80 Dementia in other diseases classified elsewhere, unspecified severity, without behavioral disturbance, psychotic disturbance, mood disturbance, and anxiety; D64.9 Anemia, unspecified

== ENCOUNTER 2019-07-31 16:44 | Inpatient (IN) | payer MEDICARE, OTHER ==
[~2019-07-31] VITALS: Ht 170.2 cm; Wt 61.2 kg
[~2019-07-31 16:44] MED LIST changes: +CLARITIN 10 MG10 MG PO; +ELIQUIS2.5 MG PO; +HYDROCODON-ACE1 EA10 PO; +LISINOPRIL10 MG PO
[2019-07-31 18:30] VITALS: BP 139/61
--- NOTE | 2019-07-31 20:15 | NUR ---
GREETED PATIENT AND INTRODUCED MYSELF HER NURSE. PATIENT IS CURRENTLY SIGNING ADMISSION PAPERWORK. RESPIRATIONS EVEN. NO S/S OF DISTRESS. CALL LIGHT IN REACH. DENIES ANY NEEDS AT THIS TIME.
[2019-08-01 00:02] VITALS: BP 139/61; BMI 21.2
[2019-08-01 06:57] LABS: BASOPHILS 0.1 % (0-2); HEMATOCRIT 27.2 % (36.0-48.0); IMMATURE GRANULOCYTES 0.1 % (0-5); LYMPHOCYTES 15.8 % (15-50); MCH 30.9 pg (26.0-34.0); MCHC 33.1 g/dL (31.0-37.0); MCV 93.5 fL (80.0-100.0); MEAN PLATELET VOLUME 8.9 fL (7.4-10.4); MONOCYTES 13.3 % (2-11); NEUTROPHILS 67.7 % (40-80); PLATELET COUNT 295 10x3/uL (130-400); RBC 2.91 10x6/uL (4.00-5.40); RDW 14.3 % (11.5-14.5)
[2019-08-01 07:09] LABS: ANION GAP 12.7 mmol/L (8-16); CALCIUM 8.5 mg/dL (8.5-10.1); CARBON DIOXIDE 25.8 mmol/L (21.0-32.0); CREATININE - SERUM 1.1 mg/dL (0.6-1.3)
[2019-08-01 07:12] LABS: POTASSIUM - SERUM 4.5 mmol/L (3.5-5.1)
[2019-08-01 08:00] VITALS: BP 138/76
--- NOTE | 2019-08-01 08:00 | NUR ---
PATIENT IS ALERT/ORIENT, FORGETFULL. BED ALARM ON. CALL LIGHT WITHIN REACH. VOICES NO NEEDS AT THIS TIME. WILL CONTINUE WITH PLAN OF CARE
[2019-08-01 11:12] VITALS: Ht 170.2 cm; Wt 61.2 kg
--- NOTE | 2019-08-01 12:21 | NUR ---
PRN PAIN MEDICATION GIVEN FOR RIGHT HIP PAIN/DISC
--- NOTE | 2019-08-01 14:14 | NUR ---
PATIENT HELPED BACK TO BED AFTER THERAPY AND LUNCH. STAND BY ASST.
--- NOTE | 2019-08-01 17:43 | NUR ---
PATIENTS AND GRAND DAUGHTER IN ROOM VISITING. PATIENT SITTING UP IN WHEELCHAIR BY BEDSIDE TO EAT SUPPER.
[2019-08-01 19:30] VITALS: BP 117/69
--- NOTE | 2019-08-01 19:30 | NUR ---
BEDSIDE REPORT COMPLETE. PT LYING IN BED EYES CLOSED RESTING. EASILY AROUSED WITH VERBAL STIMULI. ALERT AND ORIENTED X4. DENIES ANY NEEDS OR PAIN. RR EVEN AND UNLABORED. VS STABLE. SHIFT ASSESSMENT COMPLETE. RT HIP DRESSING C/D/I. CL IN REACH. BED ALARM ON. WILL CONTINUE TO MONITOR
--- NOTE | 2019-08-01 23:50 | NUR ---
ASSISTED TO RESTROOM AND BACK TO BED WITH MIN ASSIST. CL IN REACH. BED ALARM ON
--- NOTE | 2019-08-02 05:47 | NUR ---
ASSISTED PT TO RESTROOM AND BACK TO BED WITH MIN ASSIST. CL IN REACH
--- NOTE | 2019-08-02 07:35 | NUR ---
ALERT AND ORIENTED. RESP EVEN AND UNLABORED. NO C/O PAIN. CL IN REACH.
--- NOTE | 2019-08-02 07:35 | NUR ---
ALERT AND ORIENTED. RESP EVEN AND UNLABORED. CL IN REACH. ASSISTED TO BR. C/O PAIN. WILL GIVE PAIN MED.
--- NOTE | 2019-08-02 07:44 | NUR ---
ALERT AND ORIENTED. RESP EVEN AND UNLABORED. NO C/O PAIN. CL IN REACH.
[2019-08-02 08:44] VITALS: BP 137/48; BP 159/87
--- NOTE | 2019-08-02 11:22 | NUR ---
SITTING IN CHAIR IN ROOM. NO DISTRESS NOTED. PARTICIPATED IN THERAPY THIS AM.
--- NOTE | 2019-08-02 11:25 | NUR ---
AMBULATING IN BURNS WITH PT.
--- NOTE | 2019-08-02 16:08 | NUR ---
SITTING IN WC. VISITORS AT BS. NO C/O PAIN. NO CHNAGE IN ASSESSMENT. CL IN REACH.
[2019-08-02 18:45] VITALS: BP 124/64
--- NOTE | 2019-08-02 18:45 | NUR ---
BEDSIDE REPORT COMPLETE. ASSISTED PT TO RESTROOM AND BACK TO BED WITH MIN ASSIST. FAMILY AT BEDSIDE NOTED. NO SIGNS OF ACUTE DISTRESS NOTED. VS STABLE. SHIFT ASSESSMENT COMPLETE. CL IN REACH. BED ALARM ON. WILL CONTINUE TO MONITOR
--- NOTE | 2019-08-02 23:07 | NUR ---
QUIET HOURS. PT LYING IN BED ON LEFT SIDE EYES CLOSED RESTING QUIETLY. RR EVEN AND UNLABORED. CL IN REACH
--- NOTE | 2019-08-03 00:10 | NUR ---
ASSISTED TO RESTROOM AND BACK TO BED WITH MIN ASSIST. PT REQUESTED PAIN MEDICATION FOR RIGHT HIP 03/18 SHARP RADIATING PAIN. WILL ADMININSTER NORCO 10/325MG PRESCRIBED. CL IN REACH. BED ALARM ON
--- NOTE | 2019-08-03 02:28 | NUR ---
PT LYING IN BED ON LEFT SIDE EYES CLOSED RESTING COMFORTABLY. RR EVEN AND UNLABORED. CL IN REACH
--- NOTE | 2019-08-03 05:39 | NUR ---
ASSISTED PT TO RESTROOM AND BACK TO BED WITH MIN ASSIST. MED FORMED BM. LARGE URINE OUTPUT. CL IN REACH. BED ALARM ON.
[2019-08-03 06:21] LABS: BASOPHILS 0 % (0-2); EOSINOPHILS 2.3 % (0-7); HEMATOCRIT 27.1 % (36.0-48.0); HEMOGLOBIN 8.8 g/dL (12-16); IMMATURE GRANULOCYTES 0.1 % (0-5); LYMPHOCYTES 16.6 % (15-50); MCH 30.4 pg (26.0-34.0); MCHC 32.5 g/dL (31.0-37.0); MCV 93.8 fL (80.0-100.0); MEAN PLATELET VOLUME 8.9 fL (7.4-10.4); MONOCYTES 12.5 % (2-11); NEUTROPHILS 68.5 % (40-80); PLATELET COUNT 348 10x3/uL (130-400); RBC 2.89 10x6/uL (4.00-5.40); RDW 14.3 % (11.5-14.5); WBC 7.5 10x3/uL (4.8-10.8)
[2019-08-03 07:15] LABS: ANION GAP 11.2 mmol/L (8-16); CALCIUM 8.1 mg/dL (8.5-10.1); CARBON DIOXIDE 28.5 mmol/L (21.0-32.0); CREATININE - SERUM 1.1 mg/dL (0.6-1.3); POTASSIUM - SERUM 3.7 mmol/L (3.5-5.1)
--- NOTE | 2019-08-03 07:26 | NUR ---
PATIENT IS ALER WITH FORGETFULLNESS NOTED. BED ALARM ON. CALL LIGHT WITHIN REACH. VOICES NO NEEDS AT THIS TIME. WILL CONTINUE WITH PLAN OF CARE
[2019-08-03 07:31] VITALS: BP 115/64
--- NOTE | 2019-08-03 09:25 | NUR ---
PATIENT IN SHOWER. NURSE ASST HELPING WITH SHOWER
--- NOTE | 2019-08-03 11:56 | NUR ---
PATIENT ADMITTED TO REHAB FROM ACUTE FLOOR. HER PCP IS DR. RUEDA. DME AT HOME IS A ROLLING WALKER. DISCHARGE PLANS ARE FOR HER TO RETURN HOME WITH HER SPOUSE. WILL CONTINUE TO FOLLOW WITH PATIENT.
--- NOTE | 2019-08-03 14:15 | NUR ---
PATIENT IN REHAB ROOM. WORKING WITH PHYSICAL THERAPIST. DENIES ANY PAIN/DISC AT THIS TIME
--- NOTE | 2019-08-03 19:05 | NUR ---
BEDSIDE REPORT COMPLETE. PT SITTING UP IN W/C VISITING WITH FAMILY. ALERT AND ORIENTED X4. DENIES ANY NEEDS OR PAIN. VS STABLE. SHIFT ASSESSMENT COMPLETE. CL IN REACH. CHAIR ALARM ON. WILL CONTINUE TO MONITOR
[2019-08-03 19:23] VITALS: BP 134/78
--- NOTE | 2019-08-04 02:22 | NUR ---
QUIET HOURS. PT LYING IN BED EYES CLOSED RESTING COMFORTABLY. RR EVEN AND UNLABORED. CL IN REACH. BED ALARM ON
--- NOTE | 2019-08-04 06:17 | NUR ---
PT LYING IN BED EYES CLOSED RESTING. RR EVEN AND UNLABORED. CL IN REACH
--- NOTE | 2019-08-04 08:00 | NUR ---
SHIFT ASSMT COMPLETED.
[2019-08-04 08:18] VITALS: BP 119/72
--- NOTE | 2019-08-04 14:41 | NUR ---
Nutrition Follow-up: Diet: Regular PO intake: ~59% average x last 9 meals. Reports appetite "okay." Wants Ensure added to lunch tray. Last BM: 08/03/19 x 2. Wt: 135# (08/01/19) Significant meds: remeron. Labs and nursing skin assessment reviewed. Continue current diet. Will add Ensure to lunch tray. RD Following.
--- NOTE | 2019-08-04 16:00 | NUR ---
CONTINUE TO MONITOR
[2019-08-04 19:24] VITALS: BP 108/58
--- NOTE | 2019-08-04 19:28 | NUR ---
AWAKE AND ALERT. RESTING IN BED WITH RESPIRATIONS UNLABORED. 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 DRESSING TO RIGHT HIP DRY AND INTACT. EDUCATION DONE ON WAITING FOR ASSISTANCE BEFORE GETTING OUT OF BED TO BATHROOM. SHE VOICES UNDERSTANDING. SHE STATED "I GUESS IT IS BETTER TO HAVE SOMEONE IN HERE BEFORE I GO." I TOLD HER YES IT IS, WE DONT WANT YOU TO FALL. SHE AGREED.
--- NOTE | 2019-08-05 00:53 | NUR ---
RESTING QUIETLY WITH EYES CLOSED AND RESPIRATIONS UNLABORED. NO DISTRESS NOTED. CALL LIGHT IN REACH.
--- NOTE | 2019-08-05 05:25 | NUR ---
ASSISTED TO BATHROOM AND BACK TO BED. HAS BEEN UP TO BATHROOM X 6 THIS SHIFT. DRESSING INTACT TO RIGHT HIP. NOW RESTING IN BED WITH NO DISTRESS NOTED.
[2019-08-05 05:56] LABS: BASOPHILS 0.1 % (0-2); EOSINOPHILS 2.6 % (0-7); HEMATOCRIT 26.5 % (36.0-48.0); HEMOGLOBIN 8.4 g/dL (12-16); IMMATURE GRANULOCYTES 0.1 % (0-5); LYMPHOCYTES 20.4 % (15-50); MCH 30.2 pg (26.0-34.0); MCHC 31.7 g/dL (31.0-37.0); MCV 95.3 fL (80.0-100.0); MONOCYTES 9.7 % (2-11); NEUTROPHILS 67.1 % (40-80); PLATELET COUNT 398 10x3/uL (130-400); RBC 2.78 10x6/uL (4.00-5.40); RDW 14.4 % (11.5-14.5); WBC 7.8 10x3/uL (4.8-10.8)
[2019-08-05 06:09] LABS: ANION GAP 10.3 mmol/L (8-16); CALCIUM 8.4 mg/dL (8.5-10.1); CARBON DIOXIDE 27.9 mmol/L (21.0-32.0); CREATININE - SERUM 1.1 mg/dL (0.6-1.3); POTASSIUM - SERUM 3.2 mmol/L (3.5-5.1)
--- NOTE | 2019-08-05 08:00 | NUR ---
SHIFT ASSMT COMPLETED.BREAKFAST GIVEN.
--- NOTE | 2019-08-05 12:00 | NUR ---
SITTING UP EATING LUNCH.PLAN FOR TO RECIEVE BLOOD TODAY.
--- NOTE | 2019-08-05 14:52 | NUR ---
CARE TEAM MEETING: PATIENT IS PROGRESSING WELL IN THERAPY. TENATIVE DISCHARGE DATE IS 08/11/19. WILL CONTINUE TO FOLLOW WITH PATIENT.
--- NOTE | 2019-08-05 19:25 | NUR ---
BEDSIDE REPORT COMPLETE. PT SITTING UP IN W/C VISITING WITH . DENIES ANY NEEDS OR PAIN. RR EVEN AND UNLABORED. CL IN REACH. BED ALARM ON. WILL CONTINUE TO MONITOR
[2019-08-05 19:40] VITALS: BP 115/58
--- NOTE | 2019-08-06 00:54 | NUR ---
QUIET HOURS. PT LYING IN BED SUPINE EYES CLOSED RESTING QUIETLY. RR EVEN AND UNLABORED. CL IN REACH. BED ALARM ON
--- NOTE | 2019-08-06 01:29 | NUR ---
ASSISTED PT TO RESTROOM AND BACK TO BED WITH SBA. CL IN REACH
--- NOTE | 2019-08-06 03:47 | NUR ---
ASSISTED PT TO RESTROOM AND BACK TO BED WITH MIN ASSIST.
--- NOTE | 2019-08-06 05:45 | NUR ---
ASSISTED PT TO RESTROOM AND BACK TO BED WITH SBA. DENIES ANY NEEDS OR PAIN. RR EVEN AND UNLABORED. CL IN REACH. BED ALARM ON.
[2019-08-06 08:00] VITALS: BP 139/63
--- NOTE | 2019-08-06 09:50 | NUR ---
PT AM MEDS ADMINISTERED. PT DENIES NEEDS. WCTM.
[2019-08-06 19:20] VITALS: BP 142/67
--- NOTE | 2019-08-06 19:20 | NUR ---
BEDSIDE REPORT COMPLETE. PT SITTING UP IN W/C VISITING WITH . ALERT AND ORIENTED X4. DENIES ANY NEEDS OR PAIN. RR EVEN AND UNLABORED. LEFT FOREARM IV FREE FROM REDNESS OR SWELLING. FLUSHES WITHOUT DIFFICULTY. VS STABLE. SHIFT ASSESSMENT COMPLETE. CL IN REACH. CHAIR ALARM ON. WILL CONTINUE TO MONITOR
--- NOTE | 2019-08-06 21:05 | NUR ---
ASSISTED PT TO RESTROOM AND BACK TO BED WITH SBA. CL IN REACH. BED ALARM ON
--- NOTE | 2019-08-06 21:48 | NUR ---
PATIENT GIVEN PAIN MEDICATION PER ORDER. PAIN LEVEL 5 TO RIGHT HIP & LEG. CALL LIGHT WITHIN REACH. WILL CONTINUE TO MONITOR.
--- NOTE | 2019-08-07 00:20 | NUR ---
QUIET HOURS. PT LYING IN BED ON LEFT SIDE EYES CLOSED RESTING QUIETLY. RR EVEN AND UNLABORED. CL IN REACH. BED ALARM ON.
--- NOTE | 2019-08-07 03:36 | NUR ---
PT LYING IN BED EYES CLOSED RESTING COMFORTABLY. RR EVEN AND UNLABORED. CL IN REACH
[2019-08-07 06:05] LABS: BASOPHILS 0.2 % (0-2); EOSINOPHILS 1.8 % (0-7); HEMATOCRIT 30.8 % (36.0-48.0); HEMOGLOBIN 9.7 g/dL (12-16); IMMATURE GRANULOCYTES 0.2 % (0-5); LYMPHOCYTES 15.9 % (15-50); MCH 30.6 pg (26.0-34.0); MCHC 31.5 g/dL (31.0-37.0); MCV 97.2 fL (80.0-100.0); MONOCYTES 8.5 % (2-11); NEUTROPHILS 73.4 % (40-80); PLATELET COUNT 366 10x3/uL (130-400); RBC 3.17 10x6/uL (4.00-5.40); RDW 14.6 % (11.5-14.5); WBC 9.8 10x3/uL (4.8-10.8)
[2019-08-07 06:09] LABS: ANION GAP 10.1 mmol/L (8-16); CALCIUM 8.3 mg/dL (8.5-10.1); CARBON DIOXIDE 26.5 mmol/L (21.0-32.0); POTASSIUM - SERUM 3.6 mmol/L (3.5-5.1)
[2019-08-07 08:00] VITALS: BP 120/62
--- NOTE | 2019-08-07 08:00 | NUR ---
PATIENT IS ALERT. FORGETFULL AT TIMES. BED ALARM ON. CALL LIGHT WITHIN REACH. VOICES NO NEEDS AT THIS TIME. WILL CONTINUE WITH PLAN OF CARE
--- NOTE | 2019-08-07 11:32 | NUR ---
PATIENT IN REHAB ROOM. WORKING WITH OCCUPATIONAL THERAPIST. DENIES ANY PAIN/DISC AT THIS TIME.
--- NOTE | 2019-08-07 16:15 | NUR ---
PATIENTS IN ROOM. PATIENT REFUSED SHOWER, STATED SHE WAS TO TIRED AFTER THERAPY. THIS NURSE AND NURSE ASST EXPLAINED SHOWER SCHEDULE. STATED IT WOULD BE SATURDAY BEFORE SHE WOULD HAVE HER SHOWER. PATIENT STATED THAT WAS OK
--- NOTE | 2019-08-07 19:34 | NUR ---
AWAKE AND ALERT. SITTING IN ROOM IN WHEELCHAIR. NO ACUTE DISTRESS NOTED. LEFT WRIST SALINE LOCK INTACT WITH NO SIGNS OF INFILTRATION. DRESSING TO RIGHT HIP DRY AND INTACT. CALL LIGHT IN REACH.
[2019-08-07 19:46] VITALS: BP 130/67
--- NOTE | 2019-08-08 02:09 | NUR ---
RESTING IN BED WITH RESPIRATIONS UNLABORED. WITH NO DISTRESS NOTED.
--- NOTE | 2019-08-08 05:20 | NUR ---
QUIET HOURS. NO ACUTE CHANGES IN CONDITION THIS SHIFT. RESTING IN BED WITH NO DISTRESS NOTED. CALL LIGHT IN REACH.
[2019-08-08 08:00] VITALS: BP 146/82
--- NOTE | 2019-08-08 08:00 | NUR ---
SHIFT ASSMT COMPLETED.CL IN REACH.
--- NOTE | 2019-08-08 12:00 | NUR ---
SITTING UP EATING LUNCH.
[2019-08-08 19:23] VITALS: BP 120/65
--- NOTE | 2019-08-08 19:40 | NUR ---
AWAKE AND ALERT. ASSISTED TO BATHROOM AND BACK TO BED. RESPIRATIONS SLIGHTLY LABORED WITH EXERTION. HAS LOUD EXPIRATIONS RELATED TO OLD VOCAL CHORD INJURY. LEFT WRIST SALINE LOCK INTACT WITH NO SIGNS OF INFILATATION. NO ACUTE DISTRESS NOTED. CALL LIGHT IN REACH.
--- NOTE | 2019-08-09 01:29 | NUR ---
RESTING IN BED WITH EYES CLOSED AND RESPIRATIONS UNLABORED. NO DISTRESS NOTED. CALL LIGHT IN REACH.
--- NOTE | 2019-08-09 04:34 | NUR ---
ANOTHER INCONTINENT EPISODE, URINATING THROUGH BED CLOSTHES. ASSISTED TO BATHROOM AND SHE VOIDED SOME MORE. BED LINENS AND BED CLOTHES CHANGED. MESSAGE LEFT ON ROUNDING SHEET FOR DR COLBERT.
[2019-08-09 08:00] VITALS: BP 140/83
--- NOTE | 2019-08-09 08:00 | NUR ---
SHIFT ASSMT COMPLETED.
--- NOTE | 2019-08-09 12:00 | NUR ---
EATING LUNCH.CL IN REACH
--- NOTE | 2019-08-09 16:00 | NUR ---
SITTING UP VISITING WITH .
[2019-08-09 19:13] VITALS: BP 123/68
--- NOTE | 2019-08-09 19:23 | NUR ---
AWAKE AND ALERT. SITTING IN WHEELCHAIR WATCHING TV. RESPIRAITONS UNLABORED. NO DISTRESS NOTED. CALL LIGHT IN REACH.
--- NOTE | 2019-08-10 00:06 | NUR ---
RESTING IN BED WITH NO DISTRESS NOTED. CALL LIGHT IN REACH.
--- NOTE | 2019-08-10 05:20 | NUR ---
RESTING IN BED. NO ACUTE CHANGES IN CONDITION THIS SHIFT. NO DISTRESS NOTED. CALL LIGHT IN REACH.
[2019-08-10 07:09] LABS: BASOPHILS 0.1 % (0-2); EOSINOPHILS 2.4 % (0-7); HEMATOCRIT 33.6 % (36.0-48.0); HEMOGLOBIN 10.7 g/dL (12-16); IMMATURE GRANULOCYTES 0.1 % (0-5); LYMPHOCYTES 12.7 % (15-50); MCH 30.6 pg (26.0-34.0); MCHC 31.8 g/dL (31.0-37.0); MEAN PLATELET VOLUME 9.3 fL (7.4-10.4); MONOCYTES 8.2 % (2-11); NEUTROPHILS 76.5 % (40-80); RDW 14.4 % (11.5-14.5); WBC 10.1 10x3/uL (4.8-10.8)
[2019-08-10 07:18] LABS: ANION GAP 12.2 mmol/L (8-16); CALCIUM 8.7 mg/dL (8.5-10.1); CREATININE - SERUM 1.1 mg/dL (0.6-1.3); POTASSIUM - SERUM 4.2 mmol/L (3.5-5.1)
[2019-08-10 07:19] LABS: PLATELET COUNT 478 10x3/uL (130-400)
--- NOTE | 2019-08-10 07:34 | NUR ---
PATIENT RESTING IN BED. ALERT/FORGETFULL AT TIMES. BED ALARM ON. CALL LIGHT WITHIN REACH. VOICES NO NEEDS AT THIS TIME. WILL CONTINUE WITH PLAN OF CARE
[2019-08-10 07:46] VITALS: BP 138/78
--- NOTE | 2019-08-10 08:49 | NUR ---
NUTRITION F/U CHART REVIEWED, PT VISIT. REPORTS SHE USUALLY HAS A "LIGHT BREAKFAST". 100% INTAKE THIS AM OF COLD CEREAL, MILK, BANANA AND JUICE. BM RECORDED ON 08/09/19. RD FOLLOWING
--- NOTE | 2019-08-10 11:20 | NUR ---
PATIENT IN REHAB ROOM. WORKING WITH PHYSICAL THERAPIST. DENIES ANY PAIN AT THIS TIME.
--- NOTE | 2019-08-10 15:28 | NUR ---
PATIENT HELPED INTO BATHROOM. STAND BY ASST WITH WHEELED WALKER.
[2019-08-10 19:30] VITALS: BP 128/68
--- NOTE | 2019-08-10 19:30 | NUR ---
BEDSIDE REPORT COMPLETE. PT SITTING UP IN W/C VISITING WITH . DENIES ANY NEEDS OR PAIN. NO SIGNS OF ACUTE DISTRESS NOTED. VS STABLE. SHIFT ASSESSMENT COMPLETE. CL IN REACH. FALL PRECAUTIONS IN PLACE. WILL CONTINUE TO MONITOR
--- NOTE | 2019-08-11 00:45 | NUR ---
QUIET HOURS. PT LYING IN BED ON LEFT SIDE EYES CLOSED RESTING QUIETLY. RR EVEN AND UNLABORED. CL IN REACH. BED ALARM ON.
--- NOTE | 2019-08-11 04:06 | NUR ---
PT LYING IN BED ON LEFT SIDE EYES CLOSED RESTING. RR EVEN AND UNLABORED. CL IN REACH. BED ALARM ON
--- NOTE | 2019-08-11 06:23 | NUR ---
LYING IN BED ON LEFT SIDE EYES CLOSED RESTING. RR EVEN AND UNLABORED. CL IN REACH
[2019-08-11] MEDS ORDERED: HYDROCODON-ACE1 EA10 PO (07:48)
--- NOTE | 2019-08-11 07:49 | RHP ---
PATIENT: VLADIMIR ROPER MEDICAL RECORD: [id number] ACCOUNT: [id number] LOCATION:[facility] : 45 ADMISSION DATE: 07/31/19 REHABILITATION HISTORY AND PHYSICAL EXAMINATION POST ADMISSION PHYSICIAN EXAMINATION ADMITTING DIAGNOSIS: Status post right total knee replacement. 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 The tumor was compromising the bone and had to be removed to prevent pathological fracture and to read the tumor. Postoperatively, she has developed some hypotension, was moved to the ICU for close monitoring. She has had medical management done throughout her stay, oncology PT and OT. She has been transferred out of the ICU and has progressed with therapy. She is currently on IV iron. She has had acute hypotension and was in the ICU during her stay, on IV Protonix, electrolyte protocol. She had acute pain, deconditioning, weakness, debility, impaired mobility, high fall risk for falls and self-care deficits. These are all barriers to her discharge home. She lives at home with her , she is using a rolling walker for mobility and ADLs secondary to pain and mobility. She is currently set up for mod assist for ADLs and mod assist for mobility. She and her would like her to return home back to her prior level of function or better if possible. COMORBIDITIES: In this patient include lesion of the right femur, dementia, hypotension, urinary tract infection, diverticulitis, hiatal hernia, anemia, pain, weakness, deconditioning, debility, and some atelectasis in her lungs. PAST MEDICAL HISTORY: Significant for dementia, cataracts, got a history of hypertension, ME in the past, diverticulitis, Grant esophagitis, and arthritis. PAST SURGICAL HISTORY: Includes hysterectomy and now hip replacement. ALLERGIES: SULFA. CURRENT MEDICATIONS: Include an Exelon patch that she applies daily. She is on Tapazole 5 mg daily, Patricia 60 mg daily, lisinopril 10 mg daily, multivitamin daily, B12 1000 mcg daily, Protonix 40 mg daily, Namenda 10 mg b.i.d., Remeron 7.5 mg at bedtime, guaifenesin 600 mg b.i.d., Cymbalta 30 mg b.i.d., Eliquis 2.5 mg b.i.d., Tylenol 650 b.i.d., Norwood 10/325 one tab q.4 hours p.r.n., and Colace 100 mg b.i.d. HABITS: No alcohol or tobacco use. FAMILY HISTORY: Noncontributory. SOCIAL HISTORY: The patient hopes to return back home and get back to her prior level of function with her . REVIEW OF SYSTEMS: GENERAL: Does complain of weakness and fatigue. HEENT: Denies cold, cough, or congestion. CARDIOVASCULAR: Denies chest pain. HISTORY AND PHYSICAL [id number] VLADIMIR ROPER PHYSICAL EXAMINATION: VITAL SIGNS: Stable, afebrile. GENERAL: An elderly female, in no acute distress, alert upon exam. HEENT: Normocephalic and atraumatic. Mucosa moist. NECK: Supple. No lymphadenopathy. LUNGS: Clear at this time with no wheeze, rhonchi or rales. HEART: Regular rate and rhythm. She does have a holosystolic murmur. ABDOMEN: Soft, benign, and nondistended. Positive bowel sounds times 4. EXTREMITIES: No clubbing, cyanosis, or edema. Postop area appears normal. NEUROLOGIC: She does have some slow mentation, but mainly appropriate. LABORATORY DATA: White count 7000. Her H&H are 9 and 27.2 and platelet count was noted to be 295. Her sodium is 145, potassium 4.5, BUN and creatinine of 16 and 1.1, and blood sugar is noted to be 85. ASSESSMENT: This is a 73-year-old female patient admitted to rehab with a working diagnosis of status post total hip replacement secondary to possible pathologic tumor. The patient has potential to make improvement. We instituted the following multidisciplinary therapies including, but not limited to physical, occupational, respiratory, speech, nutritional services, prosthetics and orthotics. Given her complex medical condition and risks for more complications, rehabilitation services cannot be provided at a low level of care such as skilled nurse facility. PLAN: 1. Admit to [facility] for an inpatient therapy to include the following disciplines: A. Physical therapy to improve gait, all transfer skills and bed mobility to a modified independent level. B. Occupational therapy to a modified independent level. C. Case management to assist with discharge planning and placement options. D. Nutrition to assist with nutritional needs. E. Rehabilitation nursing to assist in monitoring the patient's underlying medical conditions and to assist with any type of bowel or bladder management. 2. The patient's current medication and medical care will be continued. 3. The patient will be placed on standard fall precautions. 4. I will go ahead and check a vitamin D level on her and followup her CBC and treat it appropriately and we will see again in the a.m. on Saturday. TRANSINT:[id number] Voice Confirmation ID: [id number] DOCUMENT ID: [id number] JENIFER notes whether there has been none or any medical/functional change since admission: - No change since preadmission screen. JENIFER attests patient continues to be appropriate for IRF: - Continues to be appropriate. HISTORY AND PHYSICAL [id number] VLADIMIR ROPER,LUIS DANIEL PEPPER MD at 0749 CC: [id number] DICTATION DATE: 08/01/19805 MONOMER RECOVERY OPERATOR: 08/01/19 0847 ADM IN [place] [id number] [place] [id number]
--- NOTE | 2019-08-11 07:52 | NUR ---
ALERT AND ORIENTED. NO DISTRESS NOTED. CL IN REACH. RESP EVEN AND UNLAOBRD.
[2019-08-11 08:08] VITALS: BP 129/69
--- NOTE | 2019-08-11 10:00 | NUR ---
PATIENT DISCHARGING HOME TODAY WITH FAMILY. [facility] WILL PROVIDE THERAPY AT HOME. NO NEW DME NEEDED AT THIS TIME. DR. RUEDA 08/17/19 @ 11:30, DR. HUMPHREYS 08/12/19 @ 1:15. PATIENT CHOICE FORM, HANDOUT GIVEN WITH COMPARE DATA DISCUSSED AND PATIENT VOICES UNDERSTANDING, IMFM FORM SIGNED, COPY GIVEN TO PATIENT AND FILED IN CHART. DISCHARGE INSTRUCTIONS FAXED TO PCP,[facility] AND REVIEWED WITH PATIENT AND SPOUSE.
--- NOTE | 2019-08-11 13:03 | NUR ---
NO CHANGE IN ASSESSMENT. DC INSTRUCTIONS GIVEN/VERBALIZES UNDERSTANDING. GRANDSON TO BRING O2 FOR PATIENT TO WEAR HOME. WILL BE ASSSITED TO CAR IN WC PER STAFF FOR DC HOME WITH GRAND SON WHEN HE GETS HERE.
--- NOTE | 2019-08-11 13:08 | NUR ---
DC INSTRUCTIONS GIVEN TO PATIENT AND . VERABLIZES UNDERSTANDING. NO CHANGE IN ASSESSMENT. MEDS CALLED TO [facility] [address]. PRESCRIPTION FOR HYDROCODNE SENT WITH PATIENT AND . WILL ASSIST TO CAR IN WC PER STAFF FOR DC HOME.
== END 2019-08-11 13:30 | disposition home health service (06) | DRG 565 ==
LOC: D.REHAB 16:44
PROVIDERS: ADMIT Emergency Medicine; ATTEND Emergency Medicine
DX: D49.2 Neoplasm of unspecified behavior of bone, soft tissue, and skin (principal); N39.0 Urinary tract infection, site not specified; K57.92 Diverticulitis of intestine, part unspecified, without perforation or abscess without bleeding; I95.81 Postprocedural hypotension; G30.9 Alzheimer's disease, unspecified; F02.80 Dementia in other diseases classified elsewhere, unspecified severity, without behavioral disturbance, psychotic disturbance, mood disturbance, and anxiety; D64.9 Anemia, unspecified; M84.651 Pathological fracture in other disease, right femur; R53.81 Other malaise; Z47.1 Aftercare following joint replacement surgery; Z96.641 Presence of right artificial hip joint; K44.9 Diaphragmatic hernia without obstruction or gangrene; R53.1 Weakness